=== PATIENT | female | born 1940 | race Caucasian/White ===

== ENCOUNTER 2017-06-14 19:00 | Inpatient (IN) ==
[2017-06-14] MEDS ORDERED: methylPREDNISolone SOD SUCC 125 MG/2 ML VIAL IV ONE (19:15)
[2017-06-14] MEDS ORDERED: IPRATROPIUM/ALBUTEROL 3 ML AMPUL.NEB NEB ONE ×3 (19:15→20:18)
[2017-06-14] MEDS ORDERED: methylPREDNISolone SOD SUCC 125 MG/2 ML VIAL ONE ×2 (19:16→23:39)
--- NOTE | 2017-06-14 19:23 | Emergency Department Note ---
SOB HPI - General Chief Complaint: Shortness of Breath/Dyspnea Stated Complaint: shortness of breath Time Seen by Provider: 06/14/17 19:12 Source: family Mode of arrival: wheelchair Limitations: no limitations - History of Present Illness 77-year-old female with a history of COPD and asthma. Been complaining of shortness of breath for the past 4 days with wheezing. She does use inhalers and nebulizers. She denies fever. She is having wheezing at this time. She is O2 dependent. Greater than 20-hypk-bdws history. Tobacco. Denies chest painpatient also states that she had 2 bowel movements which were black 1 yesterday and one this morning.. Is having no abdominal pain. She does admit to taking large amounts of aspirin because of left shoulder pain - Related Data Home Medications Medication Instructions Recorded Confirmed Citalopram Hydrobromide [Celexa] 40 mg PO DAILY 12/23/14 10/12/15 Montelukast Sodium [Singulair] 10 mg PO QDAY 12/23/14 10/12/15 Vitamin B Complex 1 cap PO DAILY 12/23/14 10/12/15 glipiZIDE [Glucotrol] 5 mg PO BIDAC 12/23/14 10/12/15 metFORMIN HCL [Glucophage] 1,000 mg PO BID 12/23/14 10/12/15 Vit C/Vit E/Lutein/Min/[place]-3 1 each PO DAILY 12/24/14 10/12/15 [Ocuvite Softgel] Amiodarone HCl [Cordarone] 200 mg PO TID 10/12/15 10/12/15 Apixaban [Eliquis] 5 mg PO BID 10/12/15 10/12/15 Bisoprolol [Zebeta] 5 mg PO BID 10/12/15 10/12/15 Digoxin [Lanoxin] 125 mcg PO DAILY 10/12/15 10/12/15 Saccharomyces Boulardii [Florastor] 250 mg PO DAILY 10/12/15 10/14/15 Atenolol [Tenormin] 50 mg PO DAILY 10/14/15 10/14/15 Previous Rx's Medication Instructions Recorded Fluticasone Propionate [Flonase] 1 spray NS BID #1 spray.laz 12/29/14 Ipratropium/Albuterol [Duoneb] 3 ml NEB Q4HRT #120 ampul.neb 12/29/14 Ipratropium [Atrovent] 2.5 ml NEB Q4HRT #120 ampul.neb 08/09/15 Magnesium Oxide [Magox 400] 400 mg PO DAILY #14 tablet 08/09/15 Cefuroxime [Ceftin] 500 mg PO Q12 #10 tablet 10/19/15 Allergies Allergy/AdvReac Type Severity Reaction Status Date / Time Sulfa (Sulfonamide Allergy Severe Hives Verified 02/16/16 16:02 Antibiotics) Review of Systems All systems ED: reviewed and negative except as stated. Constitutional: Denies: fever, chills Eyes: Denies: eye pain ENT ED: Denies: ear pain Cardiovascular: Denies: chest pain Respiratory: Reports: shortness of breath, cough, wheezes. Denies: phlegm, hemoptysis Gastrointestinal: Reports: melena. Denies: abdominal pain, nausea, vomiting Genitourinary: Denies: dysuria, urgency Musculoskeletal: Denies: back pain Integumentary: Denies: as per HPI, rash, lesions Neurological: Denies: headache Psychiatric: Denies: anxiety, depression Endocrine: Denies: fatigue Hematological/Lymphatic: Denies: easy bleeding Allergic/Immunologic: Denies: facial swelling Past Medical History - Past Medical History Medical history: Reports: arthritis, asthma, atrial fibrillation, CHF, COPD, DM , GERD, hypertension, other (pperipheral neuropathy) Psychiatric history: Reports: depression Surgical history ED: Reports: appendectomy, cholecystectomy, colectomy, hysterectomy, orthopedic, other (foot and ankle) - Social History smoking status: Former smoker Alcohol use: Reports: None Drug use: Reports: none Physical Exam Limitations: no limitations General appearance: alert Head: atraumatic, normocephalic Eye: Present: normal appearance, PERRL ENT: normal exam, normal oropharynx, mucous membranes moist Neck: Present: normal inspection, full ROM Chest: Present: normal inspection. Absent: symmetric chest wall rise, tenderness Respiratory: Present: normal lung sounds bilaterally, wheezes. Absent: respiratory distress, stridor Cardiovascular: Present: regular rate, normal rhythm. Absent: bradycardia, tachycardia Abdominal: Present: soft, normal bowel sounds. Absent: distention, tenderness, guarding, rebound, rigidity Rectal: Present: normal inspection, heme (+) stool. Absent: black stool Extremities: Present: normal inspection, full ROM. Absent: tenderness Back: Present: normal inspection, full ROM. Absent: tenderness Neurological: Present: alert, oriented X3, CN II-XII intact Psychiatric: Present: normal affect, normal mood Skin: Present: warm Course Vital Signs Temperature 98.4 F 06/14/17 19:00 Pulse Rate 76 06/14/17 19:00 Respiratory Rate 23 H 06/14/17 19:00 Blood Pressure 143/99 06/14/17 19:00 Pulse Oximetry (%) 96 06/14/17 19:00 Temperature 98.4 F 06/14/17 19:00 Pulse Rate 70 06/14/17 19:15 Respiratory Rate 21 06/14/17 19:16 Blood Pressure 102/52 06/14/17 19:16 Pulse Oximetry (%) 92 06/14/17 19:15 Shortness of Breath/Dyspnea - [facility] Narrative Medical decision making narrative: chest x-ray shows no acute infiltrates. Hemoglobin was 9.2. patient admits to large doses of aspirin that she's been using to treat her shoulder previously been using ibuprofen stools were guaiac positive. Dr. Bocanegra contacted and he will do an EGD or colonoscopy mild patient to be admitted to hospitalist, Dr. cottrell told contacted and patient admitted - Lab Data Result diagrams: 06/14/17 19:25 06/14/17 19:25 Lab Results 06/14/17 06/14/17 Range/Units 19:25 19:25 WBC 9.8 (4.5-11.0) K/mcL RBC 3.10 L (4.00-5.20) M/mcL Hgb 9.2 L (12.0-15.0) g/dL Hct 28.6 L (36.0-48.0) % POC Hct 29.0 L (36.0-48.0) % MCV 92.1 (80.0-100.0) fL MCH 29.8 (26.0-34.0) pg MCHC 32.4 (31.0-36.0) g/dL RDW 15.2 H (11.5-14.5) % Plt Count 312 (140-440) K/mcL MPV 9.0 (7.4-10.4) fL Gran % 69.8 (38.0-78.0) % Lymph % (Auto) 9.7 L (15.5-49.0) % [place] % (Auto) 11.5 (1.0-12.0) % Eos % (Auto) 8.5 H (0.0-7.0) % Baso % (Auto) 0.5 (0.0-2.0) % Gran # 6.9 (1.8-8.0) K/mcL Lymph # (Auto) 1.0 L (1.5-4.8) K/mcL [place] # (Auto) 1.1 H (0.1-0.9) K/mcL Eos # (Auto) 0.8 H (0.0-0.7) K/mcL Baso # (Auto) 0 (0.0-0.3) K/mcL POC Sodium 138 (133-145) mmol/L Sodium 141 (133-145) mmol/L POC Potassium 4.7 (3.3-5.1) mmol/L Potassium 5.0 (3.3-5.1) mmol/L POC Chloride 93 L (96-108) mmol/L Chloride 94 L (96-108) mmol/L Carbon Dioxide 33 H (22-30) mmol/L POC Total CO2 36 H (22-30) mmol/L Anion Gap 14.0 (8-16) POC BUN 31 H (8-23) mg/dl BUN 30 H (8-23) mg/dl Creatinine 1.7 H (0.6-1.1) mg/dl POC Creatinine 1.7 H (0.6-1.1) mg/dl GFR Calculation 28 Glucose 147 H (70-105) mg/dL POC Glucose 148 H (70-105) mg/dL Calcium 8.9 (8.6-10.4) mg/dl POC WB Ioniz Calcium 1.10 L (1.16-1.32) mmol/L Total Bilirubin < 0.2 (0.0-1.0) mg/dL AST 17 (0-37) U/l ALT 14 (0-40) U/l Alkaline Phosphatase 51 (39-117) U/L Total Protein 6.9 (5.9-8.4) gm/dL Albumin 4.2 (3.2-5.2) gm/dL Globulin 2.7 (2.2-3.7) gm/dL Albumin/Globulin Ratio 1.6 (1.0-2.3) Disposition Pt seen by 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
[2017-06-14 20:07] LABS: Basophils # (Auto) 0 K/mcL (0.0-0.3); Basophils % (Auto) 0.5 % (0.0-2.0); Eosinophils # (Auto) 0.8 K/mcL (0.0-0.7); Eosinophils % (Auto) 8.5 % (0.0-7.0); Granulocytes % (Auto) 69.8 % (38.0-78.0); Lymphocytes % (Auto) 9.7 % (15.5-49.0); Mean Cell Volume 92.1 fL (80.0-100.0); Mean Corpuscular HGB Conc 32.4 g/dL (31.0-36.0); Mean Corpuscular Hemoglobin 29.8 pg (26.0-34.0); Monocytes # (Auto) 1.1 K/mcL (0.1-0.9); Monocytes % (Auto) 11.5 % (1.0-12.0); Platelet Count 312 K/mcL (140-440); Red Cell Distribution Width 15.2 % (11.5-14.5)
[2017-06-14] MEDS ORDERED: PANTOPRAZOLE 40 MG VIAL IV ONE (20:28)
[2017-06-14 20:30] LABS: ALT/SGPT 14 U/l (0-40); Albumin 4.2 gm/dL (3.2-5.2); Albumin/Globulin Ratio 1.6 (1.0-2.3); Alkaline Phosphatase 51 U/L (39-117); Blood Urea Nitrogen 30 mg/dl (8-23)
[2017-06-14] MEDS ORDERED: PANTOPRAZOLE 80 MG in 0.9 % SODIUM CHLORIDE 100 ML IV SCH (20:45)
--- NOTE | 2017-06-14 20:58 | XRay Report ---
INDICATION: Dyspnea TECHNIQUE: AP chest x-ray,portable semiupright COMPARISON: Previous examinations dated 04/23/2017, 10/18/2015, 10/13/2015 FINDINGS:No change in position of left transvenous pacemaker leads. No focal pulmonary parenchymal consolidation. No discrete parenchymal mass. No interval change. Heart size and vascularity are normal. No pulmonary edema. No pulmonary congestion. IMPRESSION: No acute abnormality. No interval change. Interpreted and Authenticated by: Corey Raygoza 06/14/17
[2017-06-14] MEDS ORDERED: 0.9 % SODIUM CHLORIDE 1,000 ML IV SCH (21:15)
--- NOTE | 2017-06-14 22:30 | Internal Med History&Physical ---
Medical - H&P: HPI Patient information: Note initiated : 06/14/17 at 10:28 pm Service Date, if different from initiated Date: [] Patient: Johanne Carrasco a 77 y/o F admitted on for shortness of breath. Chief Complaint: [] History of present illness: Ms. Carrasco is a 77 year old Female with h/o asthma and COPD on 3 L home oxygen presents to the emergency room today because of shortness of breath that has been going on for the last 4 days The patient notes that the last 4 days she has been having cough and shortness of breath, cough is associated with yellowish greenish sputum, no blood in the sputum. Shortness of breath is associated with wheezing cough which has been progressively getting worse over the last 4 days. The patient therefore presented to the hospital for further evaluation. She admits to fatigue and weakness, denies any acute fever. Denies any sick contacts. Admits to decreased effort tolerance. The patient also notes that for the last 5-6 days she has been noticing that she has black colored stools. She denies any abdominal pain no nausea no vomiting no bright red blood in the stools. She notes that she had injured her shoulder a couple of months ago the left shoulder and has been taking aspirin 325 3 pills with Excedrin multiple times a day. She notes that that helps with the pain. She is aware that she should not be taking aspirin with the blood thinners but still chose to take this. The patient denies any new headaches no changes in vision difficulty in swallowing or changes in hearing, the patient has shortness of breath and cough no chest pain no abdominal pain no nausea no vomiting, admits to melena no bright red blood stools no hematuria. The patient denies any new joint swelling or new skin rashes but admits to easy bruising. She has wheezing going on. In the emergency room the patient was noted to be hypoxic eating 4 L to keep her oxygen saturation more than 90%. Her vital signs otherwise were stable. Her hemoglobin was 9.2 hematocrit 28. BUN was 30 creatinine is 1.7, she had bilateral wheeze on examination. Patient was admitted to the hospital for management of acute on chronic respiratory failure, COPD exacerbation and upper GI bleed there GI available site monitor at this point in time. However the ER physician spoke with a general surgeon who has agreed to perform an EGD scope tomorrow All systems: reviewed and no additional remarkable complaints except as stated Medical - H&P: PMH Medical history: Medical History Pneumonia (Acute) Diabetes mellitus (Chronic) Hypertension associated with diabetes (Chronic) Weakness generalized (Acute) Atrial flutter (Acute) Chronic bronchitis with COPD (chronic obstructive pulmonary disease) (Acute) Community acquired pneumonia (Acute) UTI (urinary tract infection), bacterial (Acute) Rectal bleeding (Acute) Family history: reviewed and not pertinent Social history: ex smoker Has heavy alcohol use denies use of recreational drug Medical - H&P: Meds Home Medications Medication Instructions Recorded Confirmed Type Montelukast Sodium [Singulair] 10 mg PO QDAY 12/23/14 06/14/17 History glipiZIDE [Glucotrol] 5 mg PO BIDAC 12/23/14 06/14/17 History metFORMIN HCL [Glucophage] 1,000 mg PO BID 12/23/14 06/14/17 History Magnesium Oxide [Magox 400] 400 mg PO DAILY #14 tablet 08/09/15 06/14/17 Rx Saccharomyces Boulardii [Florastor] 250 mg PO DAILY 10/12/15 06/14/17 History Amiodarone HCl [Pacerone] 100 mg PO ONCE 06/14/17 06/14/17 History Furosemide [Lasix] 40 mg PO DAILY 06/14/17 06/14/17 History Ipratropium/Albuterol [Duoneb] 3 ml NEB Q4HP PRN 06/14/17 06/14/17 History Lisinopril [Zestril] 20 mg PO ONCE 06/14/17 06/14/17 History Loratadine [Loradamed] 10 mg PO ONCE 06/14/17 06/14/17 History Oxybutynin Chloride [Ditropan] 5 mg PO BID 06/14/17 06/14/17 History diphenhydrAMINE [Benadryl] 25 mg PO Q4HP PRN 06/14/17 06/14/17 History Allergies Allergy/AdvReac Type Severity Reaction Status Date / Time Sulfa (Sulfonamide Allergy Severe Hives Verified 02/16/16 16:02 Antibiotics) Medical - H&P: Exam - Constitutional Vitals: Temp Pulse Resp BP Pulse Ox 98.4 F 75 20 133/60 97 06/14/17 19:00 06/14/17 22:05 06/14/17 22:05 06/14/17 22:05 06/14/17 22:05 Exam: GENERAL: The patient is a well-developed, well-nourished in no apparent distress. Is alert and oriented x3. PT obese VITAL SIGNS: Reviewed and as noted elsewhere. HEENT: Head is normocephalic and atraumatic. Extraocular muscles are intact. Pupils are equal, round, and reactive to light. Nares appeared normal. Mouth appears any without lesions. Mucous membranes are moist. NECK: Normal to inspection, Supple, No lymphadenopathy or thyromegaly. Neck LUNGS: Air entry equal on both sides, bilateral expiratory wheezes, no crackles , patient is able to speak full sentences no use of accessory muscles HEART: Regular rate and irregular rhythm, S1 and S2 heard, no Gallop, S3 or Rub Noted, No Gross murmur heard. ABDOMEN: Soft, nontender, and nondistended. Positive bowel sounds. No hepatosplenomegaly was noted. EXTREMITIES: No cyanosis, clubbing, rash, lesions or edema. NEUROLOGIC: Cranial nerves II through XII are grossly intact. Motor and Sensory System Grossly Intact PSYCHIATRIC: Normal affect, Normal Mood. Appropriate Behavior. SKIN: No ulceration or wounds noted, No jaundice, No rash noted. Multiple bruising noted on both hands Medical - H&P: Reslt - Labs CBC & Chem 7: 06/14/17 19:25 06/14/17 19:25 Labs: Short CBC 06/14/17 Range/Units 19:25 WBC 9.8 (4.5-11.0) K/mcL Hgb 9.2 L (12.0-15.0) g/dL Hct 28.6 L (36.0-48.0) % Plt Count 312 (140-440) K/mcL BMP 06/14/17 19:25 Sodium 141 Potassium 5.0 Chloride 94 L Carbon Dioxide 33 H BUN 30 H Creatinine 1.7 H Glucose 147 H Calcium 8.9 Liver Function 06/14/17 Range/Units 19:25 Total Bilirubin < 0.2 (0.0-1.0) mg/dL AST 17 (0-37) U/l ALT 14 (0-40) U/l Alkaline Phosphatase 51 (39-117) U/L Albumin 4.2 (3.2-5.2) gm/dL Medical - H&P: A/P - Narrative A/P Narrative: A/P Acute on Chronic Respiratory Failure Acute copd exacerbation Acute Upper GI bleed Chronic Kidney Disease h/o Atrial fibrillation h/o Congestive Heart failure Essential hypertension Diabetes mellitus Obesity Acute blood loss anemia Plan Admit to tele status IV PPI BID NPO MN IV steroids, IV levofloxacin, Duonebs for copd Resume home meds hold anticoagulation in light of Upper gi bleed pt educated regarding not to take asa/ nsaids with xareltro Surgery evaluation in AM Anemia workup in AM DVT scd DNR code status NPO MN except meds End of care reviewed with the patient her son and the daughter
[2017-06-14] MEDS ORDERED: ONDANSETRON 4 MG/2 ML VIAL IV PRN (22:41)
[2017-06-14] MEDS ORDERED: LEVOFLOXACIN 500 MG/100 ML BAG IV SCH (22:41)
[2017-06-14] MEDS ORDERED: NALOXONE HCL 0.4 MG/ML VIAL IV PRN (22:41)
[2017-06-14] MEDS ORDERED: ACETAMINOPHEN 325 MG TABLET PO PRN (22:41)
[2017-06-14] MEDS ORDERED: DEXTROSE 50% 50 ML VIAL IV PRN (22:41)
[2017-06-14] MEDS: IPRATROPIUM/ALBUTEROL 3 ML AMPUL.NEB NEB SCH (23:39)
[2017-06-14] MEDS ORDERED: LEVOFLOXACIN 500 MG/100 ML BAG IV ONE (23:39)
[2017-06-15] MEDS: methylPREDNISolone SOD SUCC 125 MG/2 ML VIAL IV SCH ×4 (00:11→22:14)
[2017-06-15] MEDS: 0.9 % SODIUM CHLORIDE 10 ML SYRINGE IV SCH ×4 (00:12→22:14)
[2017-06-15] MEDS: INSULIN LISPRO 1 UNIT/0.01 ML UNIT SQ SCH ×4 (00:15→17:01)
[2017-06-15] MEDS ORDERED: INSULIN LISPRO 1 UNIT/0.01 ML UNIT SQ ONE ×2 (00:20→05:41)
[2017-06-15] MEDS: IPRATROPIUM/ALBUTEROL 3 ML AMPUL.NEB NEB SCH ×6 (02:53→23:07)
[2017-06-15 05:23] LABS: Basophils # (Auto) 0 K/mcL (0.0-0.3); Basophils % (Auto) 0.2 % (0.0-2.0); Eosinophils # (Auto) 0.1 K/mcL (0.0-0.7); Eosinophils % (Auto) 1.6 % (0.0-7.0); Granulocytes % (Auto) 94.5 % (38.0-78.0); Lymphocytes # (Auto) 0.3 K/mcL (1.5-4.8); Lymphocytes % (Auto) 2.9 % (15.5-49.0); Mean Cell Volume 92.7 fL (80.0-100.0); Mean Corpuscular HGB Conc 31.8 g/dL (31.0-36.0); Mean Corpuscular Hemoglobin 29.5 pg (26.0-34.0); Monocytes # (Auto) 0.1 K/mcL (0.1-0.9); Monocytes % (Auto) 0.8 % (1.0-12.0); Platelet Count 309 K/mcL (140-440); RBC 3.12 M/mcL (4.00-5.20); Red Cell Distribution Width 15.4 % (11.5-14.5)
[2017-06-15] MEDS ORDERED: methylPREDNISolone SOD SUCC 125 MG/2 ML VIAL ONE (05:43)
[2017-06-15 05:53] LABS: ALT/SGPT 14 U/l (0-40); Albumin 4.4 gm/dL (3.2-5.2); Albumin/Globulin Ratio 1.7 (1.0-2.3); Alkaline Phosphatase 50 U/L (39-117); Bilirubin,Direct < 0.2 mg/dL (0.0-0.3); Blood Urea Nitrogen 25 mg/dl (8-23); Gamma Glutamyl Transpeptidase 11 U/L (5-36); Iron 64 mcg/dl (37-145); Transferrin % Saturation 14 % (15-50); Unsaturated Iron Binding 382 mcg/dL (112-346); Uric Acid 7.1 mg/dL (2.5-8.0)
[2017-06-15 06:02] LABS: Ferritin 14.5 ng/ml (30-400)
[2017-06-15] MEDS ORDERED: diphenhydrAMINE 25 MG CAPSULE PO PRN (07:26)
[2017-06-15] MEDS ORDERED: LISINOPRIL 20 MG TABLET PO SCH (07:30)
[2017-06-15] MEDS: LACTOBACILLUS 1 CAPSULE PO SCH (08:51)
[2017-06-15] MEDS: LISINOPRIL 20 MG TABLET PO SCH (08:51)
[2017-06-15] MEDS: MAGNESIUM OXIDE 400 MG TABLET PO SCH (08:52)
[2017-06-15] MEDS: DOXYCYCLINE HYCLATE 100 MG TABLET.ORL PO SCH ×2 (08:52→22:14)
[2017-06-15] MEDS: VITAMIN B COMPLEX 1 CAPSULE PO SCH (08:52)
[2017-06-15] MEDS: MONTELUKAST 10 MG TABLET PO SCH (08:52)
[2017-06-15] MEDS: OXYBUTYNIN CHLORIDE 5 MG TABLET PO SCH ×2 (08:52→22:14)
[2017-06-15] MEDS: AMIODARONE HCL 200 MG TABLET PO SCH (08:52)
[2017-06-15] MEDS: ATENOLOL 50 MG TABLET PO SCH (08:52)
[2017-06-15] MEDS: FUROSEMIDE 40 MG TABLET PO SCH (08:52)
[2017-06-15] MEDS ORDERED: AMIODARONE HCL 200 MG TABLET PO SCH (09:00)
[2017-06-15] MEDS ORDERED: DIGOXIN 125 MCG TABLET PO SCH (09:00)
[2017-06-15] MEDS ORDERED: CITALOPRAM HYDROBROMIDE 40 MG PO SCH (09:00)
--- NOTE | 2017-06-15 14:55 | Internal Med Progress Note ---
Medical - PN: Subj Patient information: Note initiated : 06/15/17 at 2:53 pm Service Date, if different from initiated Date: [] Patient: Johanne Carrasco a 77 y/o F admitted on 06/14/17 for shortness of breath. Chief Complaint: [] Interval history: Ms. Carrasco is a 77 year old Female with h/o asthma and COPD on 3 L home oxygen presents to the emergency room today because of shortness of breath that has been going on for the last 4 days The patient notes that the last 4 days she has been having cough and shortness of breath, cough is associated with yellowish greenish sputum, no blood in the sputum. Shortness of breath is associated with wheezing cough which has been progressively getting worse over the last 4 days. The patient therefore presented to the hospital for further evaluation. She admits to fatigue and weakness, denies any acute fever. Denies any sick contacts. Admits to decreased effort tolerance. The patient also notes that for the last 5-6 days she has been noticing that she has black colored stools. She denies any abdominal pain no nausea no vomiting no bright red blood in the stools. She notes that she had injured her shoulder a couple of months ago the left shoulder and has been taking aspirin 325 3 pills with Excedrin multiple times a day. She notes that that helps with the pain. She is aware that she should not be taking aspirin with the blood thinners but still chose to take this. The patient denies any new headaches no changes in vision difficulty in swallowing or changes in hearing, the patient has shortness of breath and cough no chest pain no abdominal pain no nausea no vomiting, admits to melena no bright red blood stools no hematuria. The patient denies any new joint swelling or new skin rashes but admits to easy bruising. She has wheezing going on. In the emergency room the patient was noted to be hypoxic eating 4 L to keep her oxygen saturation more than 90%. Her vital signs otherwise were stable. Her hemoglobin was 9.2 hematocrit 28. BUN was 30 creatinine is 1.7, she had bilateral wheeze on examination. Patient was admitted to the hospital for management of acute on chronic respiratory failure, COPD exacerbation and upper GI bleed there GI available exhibition designer at this point in time. However the ER physician spoke with a general surgeon who has agreed to perform an EGD scope tomorrow June 15 She is seen and examined, no acute overnight events, patient feels somewhat better than yesterday but not a significant change. She still has cough and shortness of breath. Her hemoglobin is stable. Vital signs remained stable. Her exam revealed significant bilateral expiratory wheezes and poor air entry. I would advise to postpone the EGD scope into tomorrow to see if the patient can be a bit more stable to undergo the procedure as the patient is hemodynamically stable at this point in time, we will start the patient on liquid diet for today and keep the patient n.p.o. for tomorrow. The patient will continue on IV PPI for now. The labs show stable hemoglobin, at 9.2. Creatinine is improved from 1.7-1.4. Anemia workup shows iron deficiency anemia Pertinent ROS: Denies headache, dizziness Denies chest pain, palpitations Shortness of breath and cough is present Denies abdominal pain, nausea or vomiting. - Constitutional Vitals: Vital Signs Temp Pulse Resp BP Pulse Ox 97.8 F 82 18 166/62 90 06/15/17 12:00 06/15/17 11:12 06/15/17 12:00 06/15/17 12:00 06/15/17 12:00 Period Temp Pulse Resp BP Sys/De Jesus Pulse Ox Last 24 Hr 97.8 F-99.3 F 68-83 16-24 82-166/49-99 70-98 Intake and Output 06/15/17 06/15/17 06/15/17 05:59 13:59 21:59 Intake Total 543 / 543 Output Total 1949 1200 / 1200 675 / 675 Balance -1407 / -1407 -1200 / -1200 -675 / -675 Weight 222 lb 222 lb Patient Weight 06/16/17 05:59 Weight 222 lb Intake & Output: Intake & Output 06/15/17 06/15/17 06/15/17 05:59 13:59 21:59 Intake Total 543 / 543 Output Total 1949 1200 / 1200 675 / 675 Balance -1407 / -1407 -1200 / -1200 -675 / -675 Weight 222 lb 222 lb Intake: IV 43 / 43 Oral 500 / 500 Output: Urine Catheter Amount 1949 1200 / 1200 Uretheral ([place]) 1000 / 1000 Void Amount 675 / 675 Exam: Constitutional; Afebrile, cooperative, alert, not in distress. Eyes- No icterus, , No periorbital swelling Ears- Ext ear normal, hearing normal to conversation. Neck- Midline trachea, supple Respiratory system: Air entry decreased bilaterally somewhat better than yesterday, bilateral expiratory wheezes present patient able to speak full sentences no accessory muscle use CVS- Rate rhythm regular, S1,S2 heard, no gallop, no rub. Abdomen- Soft nontender abdomen, no organomegaly, no tenderness, no guarding or rigidity, BDC MANAGER- AOOx3, moving all extremities, no gross focal deficit noted. Medical - PN: Obj Da - Labs CBC & Chem 7: 06/15/17 03:31 06/15/17 03:31 Labs: Abnormal Lab Results 06/15/17 06/15/17 06/15/17 03:31 03:31 03:31 RBC 3.12 L Hgb 9.2 L Hct 28.9 L POC Hct RDW 15.4 H Gran % 94.5 H Lymph % (Auto) 2.9 L [place] % (Auto) 0.8 L Eos % (Auto) Gran # 8.5 H Lymph # (Auto) 0.3 L [place] # (Auto) Eos # (Auto) POC Chloride Chloride Carbon Dioxide 31 H POC Total CO2 POC BUN BUN 25 H Creatinine 1.4 H POC Creatinine Glucose 258 H POC Glucose POC WB Ioniz Calcium TIBC 446 H Unsat Iron Binding 382 H Transferrin % Sat 14 L Ferritin 14.5 L NT-Pro-B Natriuret Pep 1416.0 H 06/14/17 06/14/17 19:25 19:25 RBC 3.10 L Hgb 9.2 L Hct 28.6 L POC Hct 29.0 L RDW 15.2 H Gran % Lymph % (Auto) 9.7 L [place] % (Auto) Eos % (Auto) 8.5 H Gran # Lymph # (Auto) 1.0 L [place] # (Auto) 1.1 H Eos # (Auto) 0.8 H POC Chloride 93 L Chloride 94 L Carbon Dioxide 33 H POC Total CO2 36 H POC BUN 31 H BUN 30 H Creatinine 1.7 H POC Creatinine 1.7 H Glucose 147 H POC Glucose 148 H POC WB Ioniz Calcium 1.10 L TIBC Unsat Iron Binding Transferrin % Sat Ferritin NT-Pro-B Natriuret Pep Meds: Medications Acetaminophen (Tylenol) 650 mg PO Q6HP PRN PRN Reason: PAIN/FEVER > 101 Albuterol/Ipratropium (Duoneb) 3 ml NEB Q4HRT [facility] Last Admin: 06/15/17 11:10 Dose: 3 ml [facility]iodarone [facility] (C[facility]) [facility] Last Admin: 06/15/17 08:52 Dose: 100 mg Atenolol (Tenormin) 50 mg PO DAILY [facility] Last Admin: 06/15/17 08:52 Dose: 50 mg Dextrose (Dextrose 50%) 0 ml IV UD PRN PRN Reason: Hypoglycemia Diagnostic Test (Pha) (Accu-Chek) 1 each FS Q6 [facility] Last Admin: 06/15/17 12:09 Dose: 1 each Diphenhydramine HCl (Benadryl) 25 mg PO Q4HP PRN PRN Reason: Allergy Symptoms Doxycycline Hyclate (Doxycycline Hyclate) 100 mg PO BID [facility] Last Admin: 06/15/17 08:52 Dose: 100 mg Furosemide (Lasix) 40 mg PO DAILY [facility] Last Admin: 06/15/17 08:52 Dose: 40 mg Insulin Human Lispro (Humalog) 0 unit SQ Q6 [facility] PRN Reason: Protocol Last Admin: 06/15/17 12:20 Dose: 3 unit Lactobacillus Rhamnosus (Culturelle) 1 cap PO DAILY [facility] Last Admin: 06/15/17 08:51 Dose: 1 cap Lisinopril (Zestril) 20 mg PO DAILY [facility] Last Admin: 06/15/17 08:51 Dose: 20 mg Magnesium Oxide (Magnesium Oxide) 400 mg PO DAILY [facility] Last Admin: 06/15/17 08:52 Dose: 400 mg Methylprednisolone Sodium Succinate (Solu-Medrol) 62.5 mg IV Q8 [facility] Last Admin: 06/15/17 14:26 Dose: 62.5 mg Montelukast Sodium (Singular) 10 mg PO QDAY [facility] Last Admin: 06/15/17 08:52 Dose: 10 mg Naloxone HCl (Narcan) 0.1 mg IV Q2MIN PRN PRN Reason: Opiate Reversal Ondansetron HCl (Zofran) 4 mg IV Q4HP PRN PRN Reason: Nausea And Vomiting Oxybutynin Chloride (Ditropan) 5 mg PO BID [facility] Last Admin: 06/15/17 08:52 Dose: 5 mg Oxycodone/Acetaminophen (Percocet 5-325 Mg) 1 tab PO Q4HP PRN PRN Reason: Pain Pantoprazole Sodium (Protonix) 40 mg IV BIDAC [facility] Sodium Chloride (Saline Flush) 10 ml IV Q8 [facility] Last Admin: 06/15/17 14:26 Dose: 10 ml Vitamin B Complex (Vitamin B Complex) 1 cap PO DAILY [facility] Last Admin: 06/15/17 08:52 Dose: 1 cap Medical - PN: A/P - Time Spent With Patient Total time spent is greater than 50% in coordination of care (as documented) at patient's floor/unit and/or counseling patient: - Narrative A/P Narrative: A/P Acute on Chronic Respiratory Failure Acute copd exacerbation Acute Upper GI bleed Chronic Kidney Disease h/o Atrial fibrillation h/o Congestive Heart failure Essential hypertension Diabetes mellitus Obesity Acute blood loss anemia Iron deficiency anemia Plan Continue to monitor on telemetry Respiratory status is stable Creatinine is improving Continue IV PPI BID, patient is on pantoprazole NPO MN, okay for liquid diet today IV steroids, IV levofloxacin, Duonebs for copd, micro-biology negative so far Resume home meds hold anticoagulation in light of Upper gi bleed pt educated regarding not to take asa/ nsaids with xareltro Surgery evaluation today EGD scope likely tomorrow Anemia workup shows iron deficiency anemia DVT scd DNR code status NPO MN except meds, full liquid diet for now Medical - PN: Qual - VTE Deep Vein Thrombosis/Pulmonary Embolism Present on Admission: No
[2017-06-15] MEDS ORDERED: LEVOFLOXACIN 250 MG/50 ML BAG IV SCH (15:00)
--- NOTE | 2017-06-15 15:02 | General Surgery Consult Note ---
History of Present Illness Patient information: Note initiated : 06/15/17 at 2:59 pm Service Date, if different from initiated Date: [] Patient: Johanne Carrasco 77 y/o F admitted on 06/14/17 for shortness of breath. Chief Complaint: [] Reason for consult: abdominal pain Requesting physician: Camille Salas History of present illness: 77-year-old female who is admitted with acute respiratory distress and 3 day history of black tarry stools. She has some indigestion and had been taking 3 aspirin or 3 Excedrin's every 4 hours for arthritic pain. She was taken this daily for week or more prior to onset of black stools. Her last documented hemoglobin in the record was 12.1 and she presented with a hemoglobin of 9.2. She has also been on Xarelto for chronic atrial fibrillation. She has not had a bowel movement since admission. Patient has a history of O2 dependent chronic obstructive lung disease which is moderately severe and she has had recent acute exacerbation. This is her limiting problem at this time. She is already under treatment and states that she is feeling better. Review of Systems - Constitutional daytime sleepiness, fatigue, malaise, snoring, stops breathing during sleep - EENT Nose, mouth and throat: dizziness, no lip swelling, no nasal congestion, no nasal discharge, no sinus pressure, no sore throat - Cardiovascular dyspnea on exertion, irregular heart rhythm, palpatations, rapid heart rate, no chest pain at rest - Respiratory wheezing, snoring, chest congestion, excessive phlegm production - Gastrointestinal abdominal pain, change in bowel habits, heartburn, hematochezia, melena, nausea - Genitourinary Genitourinary: nocturia, urinary frequency, urinary incontinence - Musculoskeletal abnormal gait, arthralgias, back pain, joint swelling, myalgias, radiating pain into limb - Integumentary unusual bruising, no pruritus, no rash - Neurological abnormal hearing, dizziness, numbness, vertigo, weakness, no tremor(s) - Psychiatric abnormal sleep pattern, anxiety, depression, hallucinations - Endocrine no fatigue, no palpitations - Hematologic/Lymphatic easy bruising, no easy bleeding, no lymphadenopathy - Allergic/Immunologic no tongue swelling, no throat swelling, no uticaria, no wheezing, no lip swelling Past History Past medical history: Recurrent severe atrial fibrillation with rapid ventricular response Chronic obstructive lung disease oxygen dependent moderately severe Diabetes mellitus History of supraventricular tachycardia Depression Peripheral neuropathy Past surgical history: Permanent pacemaker Open treatment and fixation left clavicle Cholecystectomy Partial colectomy and small bowel resection Abdominal hysterectomy Foot surgery Past family history: Mother age 91 natural causes Father age 62 lung cancer 3 siblings with diabetes and hypertension Past social history: Former smoker for greater than 50 years Former alcohol use but none in over 10 years Denies any drug use Medications and Allergies Home Medications Medication Instructions Recorded Confirmed Type Montelukast Sodium [Singulair] 10 mg PO QDAY 12/23/14 06/14/17 History glipiZIDE [Glucotrol] 5 mg PO BIDAC 12/23/14 06/14/17 History metFORMIN HCL [Glucophage] 1,000 mg PO BID 12/23/14 06/14/17 History Magnesium Oxide [Magox 400] 400 mg PO DAILY #14 tablet 08/09/15 06/14/17 Rx Saccharomyces Boulardii [Florastor] 250 mg PO DAILY 10/12/15 06/14/17 History Amiodarone HCl [Pacerone] 100 mg PO ONCE 06/14/17 06/14/17 History Furosemide [Lasix] 40 mg PO DAILY 06/14/17 06/14/17 History Ipratropium/Albuterol [Duoneb] 3 ml NEB Q4HP PRN 06/14/17 06/14/17 History Lisinopril [Zestril] 20 mg PO ONCE 06/14/17 06/14/17 History Loratadine [Loradamed] 10 mg PO ONCE 06/14/17 06/14/17 History Oxybutynin Chloride [Ditropan] 5 mg PO BID 06/14/17 06/14/17 History diphenhydrAMINE [Benadryl] 25 mg PO Q4HP PRN 06/14/17 06/14/17 History Allergies Allergy/AdvReac Type Severity Reaction Status Date / Time Sulfa (Sulfonamide Allergy Severe Hives Verified 02/16/16 16:02 Antibiotics) Exam Temp Pulse Resp BP Pulse Ox 97.8 F 82 18 166/62 90 06/15/17 12:00 06/15/17 11:12 06/15/17 12:00 06/15/17 12:00 06/15/17 12:00 - General physical appearance well developed, well nourished, no distress, chronically ill, obese - Eyes PERRL, normal ocular movement - ENT normal pinna, normal nares, normal mucosa, no hearing loss, no congestion, decreased hearing - Head Head exam IM: Present: atraumatic, normal inspection, normocephalic - Neck no masses, no bruits, trachea midline, no lymphadectomy, no venous distension - Cardiovascular Cardiovascular exam IM: Present: normal rate and rhythm, irregular rhythm, tachycardia. Absent: JVD - Respiratory normal expansion, normal respiratory effort wheezing: bilateral, rales: bilateral - Abdomen Abdomen: Present: soft, tender (Mild tenderness in left lower quadrant), bowel sounds, surgical scars (Extensive old surgical scars of right upper quadrant and midline), distended (Mild distention) Hernia: Present: none, incisional (Multiple incisional hernias of midline into the left of midline) - Genitourinary Present: normal external genitalia - Integumentary Present: no rash, no growths, other (Multiple bruises due to Xarelto therapy) - Neurologic Present: normal coordination, normal sensation - Musculoskeletal Present: normal gait, normal posture - Psychiatric Present: oriented to time, oriented to person, oriented to place, speech is normal, memory intact Results - Labs 06/15/17 03:31 18 03:31 Abnormal lab results 06/14/17 06/14/1718 Range/Units 19:25 19:25 03:31 RBC 3.10 L 3.12 L (4.00-5.20) M/mcL Hgb 9.2 L 9.2 L (12.0-15.0) g/dL Hct 28.6 L 28.9 L (36.0-48.0) % POC Hct 29.0 L (36.0-48.0) % RDW 15.2 H 15.4 H (11.5-14.5) % Gran % 94.5 H (38.0-78.0) % Lymph % (Auto) 9.7 L 2.9 L (15.5-49.0) % [place] % (Auto) 0.8 L (1.0-12.0) % Eos % (Auto) 8.5 H (0.0-7.0) % Gran # 8.5 H (1.8-8.0) K/mcL Lymph # (Auto) 1.0 L 0.3 L (1.5-4.8) K/mcL [place] # (Auto) 1.1 H (0.1-0.9) K/mcL Eos # (Auto) 0.8 H (0.0-0.7) K/mcL POC Chloride 93 L (96-108) mmol/L Chloride 94 L (96-108) mmol/L Carbon Dioxide 33 H (22-30) mmol/L POC Total CO2 36 H (22-30) mmol/L POC BUN 31 H (8-23) mg/dl BUN 30 H (8-23) mg/dl Creatinine 1.7 H (0.6-1.1) mg/dl POC Creatinine 1.7 H (0.6-1.1) mg/dl Glucose 147 H (70-105) mg/dL POC Glucose 148 H (70-105) mg/dL POC WB Ioniz Calcium 1.10 L (1.16-1.32) mmol/L TIBC (228-428) ug/dl Unsat Iron Binding (112-346) mcg/dL Transferrin % Sat (15-50) % Ferritin (30-400) ng/ml NT-Pro-B Natriuret Pep (0-450) pg/ml 18 06/15/17 Range/Units 03:31 03:31 RBC (4.00-5.20) M/mcL Hgb (12.0-15.0) g/dL Hct (36.0-48.0) % POC Hct (36.0-48.0) % RDW (11.5-14.5) % Gran % (38.0-78.0) % Lymph % (Auto) (15.5-49.0) % [place] % (Auto) (1.0-12.0) % Eos % (Auto) (0.0-7.0) % Gran # (1.8-8.0) K/mcL Lymph # (Auto) (1.5-4.8) K/mcL [place] # (Auto) (0.1-0.9) K/mcL Eos # (Auto) (0.0-0.7) K/mcL POC Chloride (96-108) mmol/L Chloride (96-108) mmol/L Carbon Dioxide 31 H (22-30) mmol/L POC Total CO2 (22-30) mmol/L POC BUN (8-23) mg/dl BUN 25 H (8-23) mg/dl Creatinine 1.4 H (0.6-1.1) mg/dl POC Creatinine (0.6-1.1) mg/dl Glucose 258 H (70-105) mg/dL POC Glucose (70-105) mg/dL POC WB Ioniz Calcium (1.16-1.32) mmol/L TIBC 446 H (228-428) ug/dl Unsat Iron Binding 382 H (112-346) mcg/dL Transferrin % Sat 14 L (15-50) % Ferritin 14.5 L (30-400) ng/ml NT-Pro-B Natriuret Pep 1416.0 H (0-450) pg/ml Diabetes panel 06/14/17 06/15/17 Range/Units 19:25 03:31 Sodium 141 141 (133-145) mmol/L Potassium 5.0 4.9 (3.3-5.1) mmol/L Chloride 94 L 98 (96-108) mmol/L Carbon Dioxide 33 H 31 H (22-30) mmol/L BUN 30 H 25 H (8-23) mg/dl Creatinine 1.7 H 1.4 H (0.6-1.1) mg/dl Glucose 147 H 258 H (70-105) mg/dL Calcium 8.9 9.1 (8.6-10.4) mg/dl AST 17 16 (0-37) U/l ALT 14 14 (0-40) U/l Alkaline Phosphatase 51 50 (39-117) U/L Total Protein 6.9 7.0 (5.9-8.4) gm/dL Albumin 4.2 4.4 (3.2-5.2) gm/dL Triglycerides 76 (<150) mg/dl Calcium panel 06/14/17 06/15/17 Range/Units 19:25 03:31 Calcium 8.9 9.1 (8.6-10.4) mg/dl Phosphorus 3.3 (2.7-4.5) mg/dL Albumin 4.2 4.4 (3.2-5.2) gm/dL Pituitary panel 06/14/17 06/15/17 Range/Units 19:25 03:31 Sodium 141 141 (133-145) mmol/L Potassium 5.0 4.9 (3.3-5.1) mmol/L Chloride 94 L 98 (96-108) mmol/L Carbon Dioxide 33 H 31 H (22-30) mmol/L BUN 30 H 25 H (8-23) mg/dl Creatinine 1.7 H 1.4 H (0.6-1.1) mg/dl Glucose 147 H 258 H (70-105) mg/dL Calcium 8.9 9.1 (8.6-10.4) mg/dl Adrenal panel 06/14/1718 Range/Units 19:25 03:31 Sodium 141 141 (133-145) mmol/L Potassium 5.0 4.9 (3.3-5.1) mmol/L Chloride 94 L 98 (96-108) mmol/L Carbon Dioxide 33 H 31 H (22-30) mmol/L BUN 30 H 25 H (8-23) mg/dl Creatinine 1.7 H 1.4 H (0.6-1.1) mg/dl Glucose 147 H 258 H (70-105) mg/dL Calcium 8.9 9.1 (8.6-10.4) mg/dl Total Bilirubin < 0.2 0.2 (0.0-1.0) mg/dL AST 17 16 (0-37) U/l ALT 14 14 (0-40) U/l Alkaline Phosphatase 51 50 (39-117) U/L Total Protein 6.9 7.0 (5.9-8.4) gm/dL Albumin 4.2 4.4 (3.2-5.2) gm/dL All other labs normal. Assessment and Plan (1) Acute exacerbation of chronic obstructive airways disease Status: Acute (2) GI bleed Continue with IV pantoprazole Add Carafate 1 g 4 times daily We will schedule EGD after her breathing is maximized and prior to discharge Hold all anticoagulant therapy until after EGD Status: Acute (3) Diabetes mellitus Status: Chronic Qualifiers: Diabetes mellitus type: type 2 Diabetes mellitus complication status: with neurologic complications (4) Hypertension associated with diabetes Status: Chronic
[2017-06-15 17:37] LABS: Vitamin B12 160.7 pg/ml (232-1245)
[2017-06-15] MEDS: SUCRALFATE 1 GM/10 ML ORAL.SUSP PO SCH (17:54)
[2017-06-15] MEDS: oxyCODONE/APAP 5/325MG TABLET PO PRN (22:13)
[2017-06-15] MEDS: PANTOPRAZOLE 40 MG VIAL IV SCH (22:13)
[2017-06-16] MEDS: SUCRALFATE 1 GM/10 ML ORAL.SUSP PO SCH ×5 (00:13→16:56)
[2017-06-16] MEDS: INSULIN LISPRO 1 UNIT/0.01 ML UNIT SQ SCH ×4 (00:13→16:56)
[2017-06-16] MEDS: IPRATROPIUM/ALBUTEROL 3 ML AMPUL.NEB NEB SCH ×6 (03:25→22:17)
[2017-06-16 05:02] LABS: Basophils # (Auto) 0 K/mcL (0.0-0.3); Basophils % (Auto) 0 % (0.0-2.0); Eosinophils # (Auto) 0.3 K/mcL (0.0-0.7); Eosinophils % (Auto) 2.7 % (0.0-7.0); Granulocytes % (Auto) 88.9 % (38.0-78.0); Lymphocytes # (Auto) 0.4 K/mcL (1.5-4.8); Lymphocytes % (Auto) 3.4 % (15.5-49.0); Mean Cell Volume 92.3 fL (80.0-100.0); Mean Corpuscular Hemoglobin 29.6 pg (26.0-34.0); Monocytes # (Auto) 0.6 K/mcL (0.1-0.9); Platelet Count 304 K/mcL (140-440); RBC 2.85 M/mcL (4.00-5.20); Red Cell Distribution Width 15.4 % (11.5-14.5)
[2017-06-16 05:11] LABS: ALT/SGPT 12 U/l (0-40); Albumin 4.1 gm/dL (3.2-5.2); Albumin/Globulin Ratio 1.7 (1.0-2.3); Alkaline Phosphatase 46 U/L (39-117); Bilirubin,Direct < 0.2 mg/dL (0.0-0.3); Blood Urea Nitrogen 28 mg/dl (8-23); Gamma Glutamyl Transpeptidase 13 U/L (5-36); Uric Acid 7.8 mg/dL (2.5-8.0)
[2017-06-16] MEDS: methylPREDNISolone SOD SUCC 125 MG/2 ML VIAL IV SCH ×3 (06:02→21:07)
[2017-06-16] MEDS: 0.9 % SODIUM CHLORIDE 10 ML SYRINGE IV SCH ×3 (06:02→21:07)
[2017-06-16] MEDS ORDERED: CYANOCOBALAMIN 1,000 MCG/ML VIAL IM SCH (09:00)
[2017-06-16] MEDS: PANTOPRAZOLE 40 MG VIAL IV SCH ×2 (09:03→16:56)
[2017-06-16] MEDS: MAGNESIUM OXIDE 400 MG TABLET PO SCH (09:04)
[2017-06-16] MEDS: MONTELUKAST 10 MG TABLET PO SCH (09:04)
[2017-06-16] MEDS: ATENOLOL 50 MG TABLET PO SCH (09:04)
[2017-06-16] MEDS: LISINOPRIL 20 MG TABLET PO SCH (09:04)
[2017-06-16] MEDS: FUROSEMIDE 40 MG TABLET PO SCH (09:04)
[2017-06-16] MEDS: AMIODARONE HCL 200 MG TABLET PO SCH (09:04)
[2017-06-16] MEDS: VITAMIN B COMPLEX 1 CAPSULE PO SCH (09:04)
[2017-06-16] MEDS: OXYBUTYNIN CHLORIDE 5 MG TABLET PO SCH ×2 (09:04→21:07)
[2017-06-16] MEDS: LACTOBACILLUS 1 CAPSULE PO SCH (09:04)
[2017-06-16] MEDS: DOXYCYCLINE HYCLATE 100 MG TABLET.ORL PO SCH ×2 (09:06→21:07)
--- NOTE | 2017-06-16 10:44 | Internal Med Progress Note ---
Medical - PN: Subj Patient information: Note initiated : 06/16/17 at 10:41 am Service Date, if different from initiated Date: [] Patient: Johanne Carrasco a 77 y/o F admitted on 06/14/17 for shortness of breath. Chief Complaint: [] Interval history: Ms. Carrasco is a 77 year old Female with h/o asthma and COPD on 3 L home oxygen presents to the emergency room today because of shortness of breath that has been going on for the last 4 days The patient notes that the last 4 days she has been having cough and shortness of breath, cough is associated with yellowish greenish sputum, no blood in the sputum. Shortness of breath is associated with wheezing cough which has been progressively getting worse over the last 4 days. The patient therefore presented to the hospital for further evaluation. She admits to fatigue and weakness, denies any acute fever. Denies any sick contacts. Admits to decreased effort tolerance. The patient also notes that for the last 5-6 days she has been noticing that she has black colored stools. She denies any abdominal pain no nausea no vomiting no bright red blood in the stools. She notes that she had injured her shoulder a couple of months ago the left shoulder and has been taking aspirin 325 3 pills with Excedrin multiple times a day. She notes that that helps with the pain. She is aware that she should not be taking aspirin with the blood thinners but still chose to take this. The patient denies any new headaches no changes in vision difficulty in swallowing or changes in hearing, the patient has shortness of breath and cough no chest pain no abdominal pain no nausea no vomiting, admits to melena no bright red blood stools no hematuria. The patient denies any new joint swelling or new skin rashes but admits to easy bruising. She has wheezing going on. In the emergency room the patient was noted to be hypoxic eating 4 L to keep her oxygen saturation more than 90%. Her vital signs otherwise were stable. Her hemoglobin was 9.2 hematocrit 28. BUN was 30 creatinine is 1.7, she had bilateral wheeze on examination. 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 However the ER physician spoke with a general surgeon who has agreed to perform an EGD scope tomorrow June 15 She is seen and examined, no acute overnight events, patient feels somewhat better than yesterday but not a significant change. She still has cough and shortness of breath. Her hemoglobin is stable. Vital signs remained stable. Her exam revealed significant bilateral expiratory wheezes and poor air entry. I would advise to postpone the EGD scope into tomorrow to see if the patient can be a bit more stable to undergo the procedure as the patient is hemodynamically stable at this point in time, we will start the patient on liquid diet for today and keep the patient n.p.o. for tomorrow. The patient will continue on IV PPI for now. The labs show stable hemoglobin, at 9.2. Creatinine is improved from 1.7-1.4. Anemia workup shows iron deficiency anemia june 16 Patient seen examined, no acute overnight events, no bowel movements, cough and shortness of breath better was ambulating with the help of Physical therapy Her labs show drop in hb to 8.4, creat is stable at 1.4 Pt is NPO, possible EGD today. continue steroids, duonebs and abx for copd. Pertinent ROS: Denies headache, dizziness Denies chest pain, palpitations improving shortness of breath and cough. Denies abdominal pain, nausea or vomiting. - Constitutional Vitals: Vital Signs Temp Pulse Resp BP Pulse Ox 97.6 F 72 18 152/62 94 06/16/17 04:14 06/16/17 08:13 06/16/17 08:13 06/16/17 04:14 06/16/17 08:13 Period Temp Pulse Resp BP Sys/De Jesus Pulse Ox Last 24 Hr 97.6 F-99.2 F 71-96 16-24 152-166/53-62 90-97 Intake and Output 06/15/17 06/16/17 06/16/17 21:59 05:59 13:59 Intake Total 1120 / 1120 Output Total 850 / 850 500 / 500 Balance 270 / 270 -500 / -500 Weight 222 lb Intake & Output: Intake & Output 06/15/17 06/16/17 06/16/17 21:59 05:59 13:59 Intake Total 1120 / 1120 Output Total 850 / 850 500 / 500 Balance 270 / 270 -500 / -500 Weight 222 lb Intake: Oral 700 / 700 GI Tube Flush 420 / 420 Output: Urine Catheter Amount 175 / 175 500 / 500 Void Amount 675 / 675 Other: Meal Dinner Percent of Meal Consumed 100% Exam: Constitutional; Afebrile, cooperative, alert, not in distress. Eyes- No icterus, , No periorbital swelling Ears- Ext ear normal, hearing normal to conversation. Neck- Midline trachea, supple Respiratory system:air entry better today, still has rosanne wheezing, but able to speak sentences, not in respiratory distress. CVS- Rate rhythm regular, S1,S2 heard, no gallop, no rub. 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 Medical - PN: Obj Da - Labs CBC & Chem 7: 06/16/17 03:30 06/16/17 03:30 Labs: Abnormal Lab Results 06/16/17 06/16/17 06/15/17 03:30 03:30 03:31 WBC 11.1 H RBC 2.85 L Hgb 8.4 L Hct 26.3 L POC Hct RDW 15.4 H Gran % 88.9 H Lymph % (Auto) 3.4 L [place] % (Auto) Eos % (Auto) Gran # 9.9 H Lymph # (Auto) 0.4 L [place] # (Auto) Eos # (Auto) POC Chloride Chloride Carbon Dioxide 36 H POC Total CO2 POC BUN BUN 28 H Creatinine 1.4 H POC Creatinine Glucose 146 H POC Glucose POC WB Ioniz Calcium TIBC Unsat Iron Binding Transferrin % Sat Ferritin NT-Pro-B Natriuret Pep 1416.0 H Vitamin B12 06/15/17 06/15/17 06/14/17 03:31 03:31 19:25 WBC RBC 3.12 L Hgb 9.2 L Hct 28.9 L POC Hct 29.0 L RDW 15.4 H Gran % 94.5 H Lymph % (Auto) 2.9 L [place] % (Auto) 0.8 L Eos % (Auto) Gran # 8.5 H Lymph # (Auto) 0.3 L [place] # (Auto) Eos # (Auto) POC Chloride 93 L Chloride 94 L Carbon Dioxide 31 H 33 H POC Total CO2 36 H POC BUN 31 H BUN 25 H 30 H Creatinine 1.4 H 1.7 H POC Creatinine 1.7 H Glucose 258 H 147 H POC Glucose 148 H POC WB Ioniz Calcium 1.10 L TIBC 446 H Unsat Iron Binding 382 H Transferrin % Sat 14 L Ferritin 14.5 L NT-Pro-B Natriuret Pep Vitamin B12 160.7 L 06/14/17 19:25 WBC RBC 3.10 L Hgb 9.2 L Hct 28.6 L POC Hct RDW 15.2 H Gran % Lymph % (Auto) 9.7 L [place] % (Auto) Eos % (Auto) 8.5 H Gran # Lymph # (Auto) 1.0 L [place] # (Auto) 1.1 H Eos # (Auto) 0.8 H POC Chloride Chloride Carbon Dioxide POC Total CO2 POC BUN BUN Creatinine POC Creatinine Glucose POC Glucose POC WB Ioniz Calcium TIBC Unsat Iron Binding Transferrin % Sat Ferritin NT-Pro-B Natriuret Pep Vitamin B12 Meds: Medications Acetaminophen (Tylenol) 650 mg PO Q6HP PRN PRN Reason: PAIN/FEVER > 101 Albuterol/Ipratropium (Duoneb) 3 ml NEB Q4HRT [facility] Last Admin: 06/16/17 08:11 Dose: 3 ml [facility]) [facility] Last Admin: 06/16/17 09:04 Dose: 100 mg Atenolol (Tenormin) 50 mg PO DAILY [facility] Last Admin: 06/16/17 09:04 Dose: 50 mg Cyanocobalamin (Vitamin B12) 1,000 mcg IM DAILY [facility] Stop: 06/19/17 08:59 Last Admin: 06/16/17 09:04 Dose: 1,000 mcg Dextrose (Dextrose 50%) 0 ml IV UD PRN PRN Reason: Hypoglycemia Diagnostic Test (Pha) (Accu-Chek) 1 each FS Q6 [facility] Last Admin: 06/16/17 05:39 Dose: 1 each Diphenhydramine HCl (Benadryl) 25 mg PO Q4HP PRN PRN Reason: Allergy Symptoms Doxycycline Hyclate (Doxycycline Hyclate) 100 mg PO BID [facility] Last Admin: 06/16/17 09:06 Dose: 100 mg Furosemide (Lasix) 40 mg PO DAILY [facility] Last Admin: 06/16/17 09:04 Dose: 40 mg Insulin Human Lispro (Humalog) 0 unit SQ Q6 [facility] PRN Reason: Protocol Last Admin: 06/16/17 06:03 Dose: 2 unit Lactobacillus Rhamnosus (Culturelle) 1 cap PO DAILY [facility] Last Admin: 06/16/17 09:04 Dose: 1 cap Lisinopril (Zestril) 20 mg PO DAILY [facility] Last Admin: 06/16/17 09:04 Dose: 20 mg Magnesium Oxide (Magnesium Oxide) 400 mg PO DAILY [facility] Last Admin: 06/16/17 09:04 Dose: 400 mg Methylprednisolone Sodium Succinate (Solu-Medrol) 62.5 mg IV Q8 [facility] Last Admin: 06/16/17 06:02 Dose: 62.5 mg Montelukast Sodium (Singular) 10 mg PO QDAY [facility] Last Admin: 06/16/17 09:04 Dose: 10 mg Naloxone HCl (Narcan) 0.1 mg IV Q2MIN PRN PRN Reason: Opiate Reversal Ondansetron HCl (Zofran) 4 mg IV Q4HP PRN PRN Reason: Nausea And Vomiting Oxybutynin Chloride (Ditropan) 5 mg PO BID [facility] Last Admin: 06/16/17 09:04 Dose: 5 mg Oxycodone/Acetaminophen (Percocet 5-325 Mg) 1 tab PO Q4HP PRN PRN Reason: Pain Last Admin: 06/15/17 22:13 Dose: 1 tab Pantoprazole Sodium (Protonix) 40 mg IV BIDAC [facility] Last Admin: 06/16/17 09:03 Dose: 40 mg Sodium Chloride (Saline Flush) 10 ml IV Q8 [facility] Last Admin: 06/16/17 06:02 Dose: 10 ml Sucralfate (Carafate) 1 gm PO Q6 [facility] Last Admin: 06/16/17 04:17 Dose: Not Given Vitamin B Complex (Vitamin B Complex) 1 cap PO DAILY [facility] Last Admin: 06/16/17 09:04 Dose: 1 cap Medical - PN: A/P - Time Spent With Patient Total time spent is greater than 50% in coordination of care (as documented) at patient's floor/unit and/or counseling patient: - Narrative A/P Narrative: A/P Acute on Chronic Respiratory Failure Acute copd exacerbation Acute Upper GI bleed Chronic Kidney Disease h/o Atrial fibrillation h/o Congestive Heart failure Essential hypertension Diabetes mellitus Obesity Acute blood loss anemia Iron deficiency anemia Plan Continue to monitor on telemetry hb dropped 0.8gms, plan for EGD today Respiratory status is stable and improving Creatinine is stable today at 1.4 Continue IV PPI BID, patient is on pantoprazole NPO still IV steroids, IV levofloxacin, Duonebs for copd, micro-biology negative so far Resume home meds hold anticoagulation in light of Upper gi bleed pt educated regarding not to take asa/ nsaids with xareltro Anemia workup shows iron deficiency anemia DVT scd DNR code status NPO MN except meds, full liquid diet for now Medical - PN: Qual - VTE Deep Vein Thrombosis/Pulmonary Embolism Present on Admission: No
--- NOTE | 2017-06-16 14:11 | General Surgery Progress Note ---
Subjective Patient reports: feels better, flatus, no bowel movement, nausea, shortness of breath, afebrile Narrative: Note initiated : 06/16/17 at 2:10 pm Service Date, if different from initiated Date: [] Patient: Johanne Carrasco 77 y/o F admitted on 06/14/17 for shortness of breath. Chief Complaint: [Patient is stable she still has moderately severe respiratory compromise but was able to walk 100 feet earlier today. She denies abdominal pain. She has not had any more melena but her hemoglobin has dropped to 8.4 from 9.2 on yesterday. This may very well be dilutional. She denies any epigastric pain. She complains of hunger. Today is the second complete day off Xarelto so I will wait until tomorrow to do her scope in case I have to do some intervention. This was discussed with the patient and with Dr. Cat hod]. Objective Temp Pulse Resp BP Pulse Ox 98.7 F 76 20 133/72 91 06/16/17 12:00 06/16/17 12:00 06/16/17 12:00 06/16/17 12:00 06/16/17 12:00 - Additional Data Intake & Output - Last 24 hours: Intake & Output 06/14/17 06/15/17 06/16/17 06/17/17 05:59 05:59 05:59 05:59 Intake Total 543 / 543 1120 / 1120 Output Total 1950 / 1950 2550 / 2550 Balance -1407 / -1407 -1430 / -1430 Weight 222 lb 222 lb - General physical appearance well developed, well nourished, moderate distress, other (Moderate respiratory compromise but patient is lying flat. She does not have air hunger.) - Eyes PERRL, normal ocular movement - ENT normal pinna, normal nares, normal mucosa, no hearing loss, no congestion - Neck no masses, no bruits, trachea midline, no lymphadectomy, no venous distension - Respiratory other (Expiratory wheezes are improved from yesterday) - Cardiovascular Cardiovascular exam: Present: +S1, +S2. Absent: JVD - Abdomen non tender, bowel sounds (present), surgical scars (none), masses (none) - Integumentary no rash, no growths, other (scattered superficial ecchymotic lesions On extremities) - Neurologic normal coordination, normal sensation - Musculoskeletal other (Ambulates with front wheel walker and standby assistance) - Psychiatric oriented to time, oriented to person, oriented to place, speech is normal, memory intact - Labs 06/16/17 03:30 06/16/17 03:30 Diabetes panel 06/16/17 Range/Units 03:30 Sodium 141 (133-145) mmol/L Potassium 4.3 (3.3-5.1) mmol/L Chloride 96 (96-108) mmol/L Carbon Dioxide 36 H (22-30) mmol/L BUN 28 H (8-23) mg/dl Creatinine 1.4 H (0.6-1.1) mg/dl Glucose 146 H (70-105) mg/dL Calcium 9.3 (8.6-10.4) mg/dl AST 18 (0-37) U/l ALT 12 (0-40) U/l Alkaline Phosphatase 46 (39-117) U/L Total Protein 6.5 (5.9-8.4) gm/dL Albumin 4.1 (3.2-5.2) gm/dL Triglycerides 71 (<150) mg/dl Calcium panel 06/16/17 Range/Units 03:30 Calcium 9.3 (8.6-10.4) mg/dl Phosphorus 3.3 (2.7-4.5) mg/dL Albumin 4.1 (3.2-5.2) gm/dL Pituitary panel 06/16/17 Range/Units 03:30 Sodium 141 (133-145) mmol/L Potassium 4.3 (3.3-5.1) mmol/L Chloride 96 (96-108) mmol/L Carbon Dioxide 36 H (22-30) mmol/L BUN 28 H (8-23) mg/dl Creatinine 1.4 H (0.6-1.1) mg/dl Glucose 146 H (70-105) mg/dL Calcium 9.3 (8.6-10.4) mg/dl Adrenal panel 06/16/17 Range/Units 03:30 Sodium 141 (133-145) mmol/L Potassium 4.3 (3.3-5.1) mmol/L Chloride 96 (96-108) mmol/L Carbon Dioxide 36 H (22-30) mmol/L BUN 28 H (8-23) mg/dl Creatinine 1.4 H (0.6-1.1) mg/dl Glucose 146 H (70-105) mg/dL Calcium 9.3 (8.6-10.4) mg/dl Total Bilirubin < 0.2 (0.0-1.0) mg/dL AST 18 (0-37) U/l ALT 12 (0-40) U/l Alkaline Phosphatase 46 (39-117) U/L Total Protein 6.5 (5.9-8.4) gm/dL Albumin 4.1 (3.2-5.2) gm/dL Assessment and Plan (1) Acute exacerbation of chronic obstructive airways disease Status: Acute Assessment and plan: Clinically improved from yesterday Current Visit: Yes (2) GI bleed Status: Acute Assessment and plan: No clinical evidence of ongoing bleeding but hemoglobin has dropped from 9.2-8.4 We will do upper endoscopy at 07 30 tomorrow Current Visit: Yes (3) Diabetes mellitus Status: Chronic Current Visit: No (4) Hypertension associated with diabetes Status: Chronic Current Visit: No - Time Spent With Patient Total time spent is greater than 50% in coordination of care (as documented) at patient's floor/unit and/or counseling patient:
[2017-06-17] MEDS: oxyCODONE/APAP 5/325MG TABLET PO PRN (00:02)
[2017-06-17] MEDS: INSULIN LISPRO 1 UNIT/0.01 ML UNIT SQ SCH ×4 (00:05→17:05)
[2017-06-17] MEDS: SUCRALFATE 1 GM/10 ML ORAL.SUSP PO SCH ×4 (00:05→17:14)
[2017-06-17] MEDS: IPRATROPIUM/ALBUTEROL 3 ML AMPUL.NEB NEB SCH ×6 (03:26→22:57)
[2017-06-17] MEDS: methylPREDNISolone SOD SUCC 125 MG/2 ML VIAL IV SCH ×3 (06:04→22:50)
[2017-06-17 06:20] LABS: Basophils # (Auto) 0 K/mcL (0.0-0.3); Basophils % (Auto) 0 % (0.0-2.0); Eosinophils # (Auto) 0.2 K/mcL (0.0-0.7); Eosinophils % (Auto) 2.4 % (0.0-7.0); Granulocytes % (Auto) 90.5 % (38.0-78.0); Lymphocytes # (Auto) 0.3 K/mcL (1.5-4.8); Mean Cell Volume 92.9 fL (80.0-100.0); Mean Corpuscular HGB Conc 31.1 g/dL (31.0-36.0); Mean Corpuscular Hemoglobin 28.9 pg (26.0-34.0); Monocytes # (Auto) 0.4 K/mcL (0.1-0.9); Monocytes % (Auto) 4.1 % (1.0-12.0); Platelet Count 295 K/mcL (140-440); RBC 2.84 M/mcL (4.00-5.20); Red Cell Distribution Width 15.4 % (11.5-14.5)
[2017-06-17 06:46] LABS: ALT/SGPT 15 U/l (0-40); Albumin/Globulin Ratio 1.8 (1.0-2.3); Alkaline Phosphatase 40 U/L (39-117); Bilirubin,Direct < 0.2 mg/dL (0.0-0.3); Blood Urea Nitrogen 44 mg/dl (8-23); Gamma Glutamyl Transpeptidase 10 U/L (5-36); Uric Acid 9.2 mg/dL (2.5-8.0)
[2017-06-17] MEDS ORDERED: 0.9 % SODIUM CHLORIDE 1,000 ML IV SCH ×2 (07:15→08:17)
[2017-06-17] MEDS ORDERED: ONDANSETRON 4 MG/2 ML VIAL IV PRN ×3 (07:18→08:17)
[2017-06-17] MEDS ORDERED: IPRATROPIUM/ALBUTEROL 3 ML AMPUL.NEB NEB PRN ×2 (07:18→08:17)
[2017-06-17] MEDS ORDERED: LACTATED RINGERS 250 ML IV PRN ×2 (07:18→08:17)
[2017-06-17] MEDS ORDERED: 0.9 % SODIUM CHLORIDE 250 ML IV SCH ×3 (07:30→09:00)
[2017-06-17] MEDS ORDERED: MIDAZOLAM 2 MG/2 ML VIAL IV ONE (07:30)
[2017-06-17] MEDS ORDERED: LACTATED RINGERS 1,000 ML IV SCH ×2 (07:30→08:17)
[2017-06-17] MEDS ORDERED: PROPOFOL 200 MG/20 ML VIAL IV ONE (07:30)
[2017-06-17] MEDS ORDERED: fentaNYL 100 MCG/2 ML VIAL IV ONE (07:30)
--- NOTE | 2017-06-17 07:57 | Brief Operative Note ---
Date of procedure: 06/17/17 Pre-op diagnosis: UPPER G I BLEED Post-op diagnosis: other (ACUTE GASTRO DUODENITIS WITHOUT BLEEDING;ESOPHAGEAL VARICES) Procedure: EGD WITH BIOPSIES Grafts/Implants: No Anesthesia: other (GENERAL) Findings: GR 2-3 VARICES OF ESOPHAGUS MODERATE ACUTE INFLAMMATION OF ANTRUM AND DUODENAL BULB ; NO ACTIVE BLEEDING AND NO MUCOSAL ULCERATIONS Complications: none Surgeon: Ortega Bocanegra Specimens Removed/Pathology: other (DUODENAL BIOPSIES) Condition: stable Disposition: PACU
[2017-06-17] MEDS ORDERED: DEXTROSE 50% 50 ML VIAL IV PRN (08:17)
[2017-06-17] MEDS ORDERED: ACETAMINOPHEN 325 MG TABLET PO PRN (08:17)
[2017-06-17] MEDS ORDERED: diphenhydrAMINE 25 MG CAPSULE PO PRN (08:17)
[2017-06-17] MEDS ORDERED: NALOXONE HCL 0.4 MG/ML VIAL IV PRN (08:17)
[2017-06-17] MEDS ORDERED: oxyCODONE/APAP 5/325MG TABLET PO PRN (08:17)
[2017-06-17] MEDS: MAGNESIUM OXIDE 400 MG TABLET PO SCH (10:15)
[2017-06-17] MEDS: VITAMIN B COMPLEX 1 CAPSULE PO SCH (10:15)
[2017-06-17] MEDS: MONTELUKAST 10 MG TABLET PO SCH (10:15)
[2017-06-17] MEDS: LISINOPRIL 20 MG TABLET PO SCH (10:15)
[2017-06-17] MEDS: ATENOLOL 50 MG TABLET PO SCH (10:15)
[2017-06-17] MEDS: LACTOBACILLUS 1 CAPSULE PO SCH (10:15)
[2017-06-17] MEDS: DOXYCYCLINE HYCLATE 100 MG TABLET.ORL PO SCH ×2 (10:15→21:58)
[2017-06-17] MEDS: cefTRIAXone 1 GM VIAL IV SCH (10:16)
[2017-06-17] MEDS: CYANOCOBALAMIN 1,000 MCG/ML VIAL IM SCH (10:16)
[2017-06-17] MEDS: OXYBUTYNIN CHLORIDE 5 MG TABLET PO SCH ×2 (10:16→21:58)
[2017-06-17] MEDS: FUROSEMIDE 40 MG TABLET PO SCH (10:16)
--- NOTE | 2017-06-17 11:06 | Ultrasound Report ---
CLINICAL INFORMATION: History of cirrhosis TECHNIQUE: Grayscale and color flow Doppler spectral imaging COMPARISON: Previous CT scan dated 09/30/2013 FINDINGS: Previous cholecystectomy. Common bile duct measures 7 mm. No intrahepatic bile duct dilatation. Appearance is unchanged. Liver is heterogeneous. No solid or cystic mass. No focal abnormality. Normal hepatopedal portal venous flow. There is a right adrenal mass. This measures 3.3 x 3.0 x 3.5 cm. This appears unchanged since 09/30/2013. This is considered benign. Proximal pancreatic duct measures 4 mm. This is unchanged and is 2014. No detectable pancreatic head mass IMPRESSION: 1. Previous cholecystectomy. Prominent common bile duct is unchanged. No intrahepatic bile duct dilatation 2. Heterogeneous liver parenchyma. No focal mass 3. Stable right adrenal mass 4. Pancreatic duct measures 4 mm. This is stable since 2013 Interpreted and Authenticated by: Corey Raygoza 06/17/17
[2017-06-17] MEDS: AMIODARONE HCL 200 MG TABLET PO SCH (15:05)
[2017-06-17] MEDS: PANTOPRAZOLE 40 MG VIAL IV SCH ×2 (15:05→17:04)
[2017-06-17] MEDS: 0.9 % SODIUM CHLORIDE 10 ML SYRINGE IV SCH ×3 (15:07→22:50)
[2017-06-17] MEDS ORDERED: FUROSEMIDE 40 MG/4 ML VIAL IV ONE (15:09)
--- NOTE | 2017-06-17 15:50 | Internal Med Progress Note ---
Medical - PN: Subj Patient information: Note initiated : 06/17/17 at 3:48 pm Service Date, if different from initiated Date: [] Patient: Johanne Carrasco a 77 y/o F admitted on 06/14/17 for shortness of breath. Chief Complaint: [] Interval history: Ms. Carrasco is a 77 year old Female with h/o asthma and COPD on 3 L home oxygen presents to the emergency room today because of shortness of breath that has been going on for the last 4 days The patient notes that the last 4 days she has been having cough and shortness of breath, cough is associated with yellowish greenish sputum, no blood in the sputum. Shortness of breath is associated with wheezing cough which has been progressively getting worse over the last 4 days. The patient therefore presented to the hospital for further evaluation. She admits to fatigue and weakness, denies any acute fever. Denies any sick contacts. Admits to decreased effort tolerance. The patient also notes that for the last 5-6 days she has been noticing that she has black colored stools. She denies any abdominal pain no nausea no vomiting no bright red blood in the stools. She notes that she had injured her shoulder a couple of months ago the left shoulder and has been taking aspirin 325 3 pills with Excedrin multiple times a day. She notes that that helps with the pain. She is aware that she should not be taking aspirin with the blood thinners but still chose to take this. The patient denies any new headaches no changes in vision difficulty in swallowing or changes in hearing, the patient has shortness of breath and cough no chest pain no abdominal pain no nausea no vomiting, admits to melena no bright red blood stools no hematuria. The patient denies any new joint swelling or new skin rashes but admits to easy bruising. She has wheezing going on. In the emergency room the patient was noted to be hypoxic eating 4 L to keep her oxygen saturation more than 90%. Her vital signs otherwise were stable. Her hemoglobin was 9.2 hematocrit 28. BUN was 30 creatinine is 1.7, she had bilateral wheeze on examination. 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 However the ER physician spoke with a general surgeon who has agreed to perform an EGD scope tomorrow June 15 She is seen and examined, no acute overnight events, patient feels somewhat better than yesterday but not a significant change. She still has cough and shortness of breath. Her hemoglobin is stable. Vital signs remained stable. Her exam revealed significant bilateral expiratory wheezes and poor air entry. I would advise to postpone the EGD scope into tomorrow to see if the patient can be a bit more stable to undergo the procedure as the patient is hemodynamically stable at this point in time, we will start the patient on liquid diet for today and keep the patient n.p.o. for tomorrow. The patient will continue on IV PPI for now. The labs show stable hemoglobin, at 9.2. Creatinine is improved from 1.7-1.4. Anemia workup shows iron deficiency anemia june 16 Patient seen examined, no acute overnight events, no bowel movements, cough and shortness of breath better was ambulating with the help of Physical therapy Her labs show drop in hb to 8.4, creat is stable at 1.4 Pt is NPO, possible EGD today. continue steroids, duonebs and abx for copd. june 17 In and examined, no acute overnight events, the patient's breathing is still not at baseline but patient reports slow improvement. The patient's oxygen needs have improved and she is back to 3 L which is her home dose. The hemoglobin is stable overnight. Patient had a EGD scope done today which revealed R 2-3 VARICES OF ESOPHAGUS MODERATE ACUTE INFLAMMATION OF ANTRUM AND DUODENAL BULB ; NO ACTIVE BLEEDING AND NO MUCOSAL ULCERATIONS The patient is on PPI, Carafate added. Biopsies taken by Dr. Bocanegra. 2 units of blood transfusion ordered by Dr. Bocanegra Patient had a liver ultrasound done to evaluate for cirrhosis, there is noted that the patient had heterogeneous liver normal flow of blood. Pertinent ROS: Denies headache, dizziness Denies chest pain, palpitations Improving cough and shortness of breath Denies abdominal pain, nausea or vomiting. - Constitutional Vitals: Vital Signs Temp Pulse Resp BP Pulse Ox 98.2 F 66 22 139/58 95 06/17/17 12:00 06/17/17 14:49 06/17/17 14:49 06/17/17 12:00 06/17/17 12:00 Period Temp Pulse Resp BP Sys/De Jesus Pulse Ox Last 24 Hr 97.6 F-98.9 F 60-72 12-24 121-149/49-73 90-97 Intake and Output 06/17/17 06/17/17 06/17/17 05:59 13:59 21:59 Intake Total 400 / 400 599 / 599 Output Total 400 / 400 Balance 0 / 0 599 / 599 Intake & Output: Intake & Output 06/17/17 06/17/17 06/17/17 05:59 13:59 21:59 Intake Total 400 / 400 599 / 599 120 / 120 Output Total 400 / 400 800 / 800 Balance 0 / 0 599 / 599 -680 / -680 Intake: IV 279 / 279 Sodium Chloride 0.9% 1,000 ml @ 279 / 279 125 mls/hr IV .Q8H [facility] Rx#: [id number] Oral 320 / 320 120 / 120 GI Tube Flush 400 / 400 Output: Urine Catheter Amount 400 / 400 800 / 800 Other: Meal Dinner Breakfast Lunch Percent of Meal Consumed 100% 100% 100% Feeding Ability Independent Exam: Constitutional; Afebrile, cooperative, alert, not in distress. Eyes- No icterus, , No periorbital swelling Ears- Ext ear normal, hearing normal to conversation. Neck- Midline trachea, supple Respiratory system: Air Entry equal on both sides, decreased air entry bilaterally, not in respiratory distress, bilateral expiratory wheezing present. Patient able to speak full sentences, no accessory muscle use CVS- Rate rhythm regular, S1,S2 heard, no gallop, no rub. 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 Medical - PN: Obj Da - Labs CBC & Chem 7: 06/17/17 04:08 06/17/17 04:08 Labs: Abnormal Lab Results 06/17/17 06/17/17 06/16/17 04:08 04:08 03:30 WBC RBC 2.84 L Hgb 8.2 L Hct 26.4 L POC Hct RDW 15.4 H Gran % 90.5 H Lymph % (Auto) 3.0 L Ashley % (Auto) Eos % (Auto) Gran # 9.1 H Lymph # (Auto) 0.3 L Ashley # (Auto) Eos # (Auto) POC Chloride Chloride 94 L Carbon Dioxide 36 H 36 H POC Total CO2 POC BUN BUN 44 H 28 H Creatinine 1.7 H 1.4 H POC Creatinine Glucose 142 H 146 H POC Glucose Uric Acid 9.2 H POC WB Ioniz Calcium Phosphorus 4.6 H TIBC Unsat Iron Binding Transferrin % Sat Ferritin NT-Pro-B Natriuret Pep Vitamin B12 06/16/17 06/15/17 06/15/17 03:30 03:31 03:31 WBC 11.1 H RBC 2.85 L Hgb 8.4 L Hct 26.3 L POC Hct RDW 15.4 H Gran % 88.9 H Lymph % (Auto) 3.4 L Ashley % (Auto) Eos % (Auto) Gran # 9.9 H Lymph # (Auto) 0.4 L Ashley # (Auto) Eos # (Auto) POC Chloride Chloride Carbon Dioxide 31 H POC Total CO2 POC BUN BUN 25 H Creatinine 1.4 H POC Creatinine Glucose 258 H POC Glucose Uric Acid POC WB Ioniz Calcium Phosphorus TIBC 446 H Unsat Iron Binding 382 H Transferrin % Sat 14 L Ferritin 14.5 L NT-Pro-B Natriuret Pep 1416.0 H Vitamin B12 160.7 L 06/15/17 06/14/17 06/14/17 03:31 19:25 19:25 WBC RBC 3.12 L 3.10 L Hgb 9.2 L 9.2 L Hct 28.9 L 28.6 L POC Hct 29.0 L RDW 15.4 H 15.2 H Gran % 94.5 H Lymph % (Auto) 2.9 L 9.7 L Ashley % (Auto) 0.8 L Eos % (Auto) 8.5 H Gran # 8.5 H Lymph # (Auto) 0.3 L 1.0 L Ashley # (Auto) 1.1 H Eos # (Auto) 0.8 H POC Chloride 93 L Chloride 94 L Carbon Dioxide 33 H POC Total CO2 36 H POC BUN 31 H BUN 30 H Creatinine 1.7 H POC Creatinine 1.7 H Glucose 147 H POC Glucose 148 H Uric Acid POC WB Ioniz Calcium 1.10 L Phosphorus TIBC Unsat Iron Binding Transferrin % Sat Ferritin NT-Pro-B Natriuret Pep Vitamin B12 Meds: Medications Acetaminophen (Tylenol) 650 mg PO Q6HP PRN PRN Reason: PAIN/FEVER > 101 Albuterol/Ipratropium (Duoneb) 3 ml NEB Q4HRT [facility] Last Admin: 06/17/17 14:47 Dose: 3 ml Amiodarone HCl (Cordarone) 100 mg PO QAC [facility] Atenolol (Tenormin) 50 mg PO DAILY [facility] Last Admin: 06/17/17 10:15 Dose: 50 mg Ceftriaxone Sodium (Rocephin) 1 gm IV Q24H [facility] Last Admin: 06/17/17 10:16 Dose: 1 gm Cyanocobalamin (Vitamin B12) 1,000 mcg IM DAILY [facility] Stop: 06/19/17 08:59 Last Admin: 06/17/17 10:16 Dose: 1,000 mcg Dextrose (Dextrose 50%) 0 ml IV UD PRN PRN Reason: Hypoglycemia Diagnostic Test (Pha) (Accu-Chek) 1 each FS Q6 [facility] Last Admin: 06/17/17 12:58 Dose: 1 each Diphenhydramine HCl (Benadryl) 25 mg PO Q4HP PRN PRN Reason: Allergy Symptoms Doxycycline Hyclate (Doxycycline Hyclate) 100 mg PO BID [facility] Last Admin: 06/17/17 10:15 Dose: 100 mg Furosemide (Lasix) 40 mg PO DAILY [facility] Last Admin: 06/17/17 10:16 Dose: 40 mg Sodium Chloride (Sodium Chloride 0.9%) 250 mls @ 20 mls/hr IV .[id number] [facility] Stop: 06/17/17 19:59 Last Admin: 06/17/17 13:04 Dose: Not Given Sodium Chloride (Sodium Chloride 0.9%) 250 mls @ 20 mls/hr IV .[id number] [facility] Stop: 06/17/17 21:29 Insulin Human Lispro (Humalog) 0 unit SQ Q6 SUN PRN Reason: Protocol Last Admin: 06/17/17 12:59 Dose: 4 unit Lactobacillus Rhamnosus (Culturelle) 1 cap PO DAILY [facility] Last Admin: 06/17/17 10:15 Dose: 1 cap Lisinopril (Zestril) 20 mg PO DAILY [facility] Last Admin: 06/17/17 10:15 Dose: 20 mg Magnesium Oxide (Magnesium Oxide) 400 mg PO DAILY [facility] Last Admin: 06/17/17 10:15 Dose: 400 mg Methylprednisolone Sodium Succinate (Solu-Medrol) 62.5 mg IV Q8 [facility] Montelukast Sodium (Singular) 10 mg PO QDAY [facility] Last Admin: 06/17/17 10:15 Dose: 10 mg Naloxone HCl (Narcan) 0.1 mg IV Q2MIN PRN PRN Reason: Opiate Reversal Ondansetron HCl (Zofran) 4 mg IV Q4HP PRN PRN Reason: Nausea And Vomiting Oxybutynin Chloride (Ditropan) 5 mg PO BID [facility] Last Admin: 06/17/17 10:16 Dose: 5 mg Oxycodone/Acetaminophen (Percocet 5-325 Mg) 1 tab PO Q4HP PRN PRN Reason: Pain Pantoprazole Sodium (Protonix) 40 mg IV BIDAC [facility] Sodium Chloride (Saline Flush) 10 ml IV Q8 [facility] Sucralfate (Carafate) 1 gm PO Q6 [facility] Last Admin: 06/17/17 12:58 Dose: 1 gm Vitamin B Complex (Vitamin B Complex) 1 cap PO DAILY [facility] Last Admin: 06/17/17 10:15 Dose: 1 cap Medical - PN: A/P - Time Spent With Patient Total time spent is greater than 50% in coordination of care (as documented) at patient's floor/unit and/or counseling patient: - Narrative A/P Narrative: A/P Acute on Chronic Respiratory Failure Acute copd exacerbation Acute Upper GI bleed Chronic Kidney Disease h/o Atrial fibrillation h/o Congestive Heart failure Essential hypertension Diabetes mellitus Obesity Acute blood loss anemia Iron deficiency anemia E. coli urinary tract infection Esophageal varices Gastritis and duodenitis Plan Continue to monitor on telemetry hb stable overnight 2 units of blood to be transfused Respiratory status is stable and improving vision is back on baseline oxygen needs Creatinine is slightly worse today at 1.7 Continue IV PPI BID, patient is on pantoprazole, Carafate added by surgery IV steroids, duo nebs. Patient levofloxacin switched to Rocephin because of urinary tract infection in which E. coli is resistant to levofloxacin Resume home meds hold anticoagulation in light of Upper gi bleed, will discuss with surgery before initiating them pt educated regarding not to take asa/ nsaids with xareltro DVT scd DNR code status NPO MN except meds, full liquid diet for now Medical - PN: Qual - VTE Deep Vein Thrombosis/Pulmonary Embolism Present on Admission: No
[2017-06-18] MEDS: INSULIN LISPRO 1 UNIT/0.01 ML UNIT SQ SCH ×4 (00:16→12:00)
[2017-06-18] MEDS: SUCRALFATE 1 GM/10 ML ORAL.SUSP PO SCH ×3 (00:17→12:01)
[2017-06-18] MEDS: IPRATROPIUM/ALBUTEROL 3 ML AMPUL.NEB NEB SCH ×3 (03:23→11:07)
[2017-06-18 05:06] LABS: Basophils # (Auto) 0 K/mcL (0.0-0.3); Basophils % (Auto) 0.1 % (0.0-2.0); Eosinophils # (Auto) 0.3 K/mcL (0.0-0.7); Eosinophils % (Auto) 3.5 % (0.0-7.0); Lymphocytes # (Auto) 0.3 K/mcL (1.5-4.8); Lymphocytes % (Auto) 2.8 % (15.5-49.0); Mean Cell Volume 91.7 fL (80.0-100.0); Mean Corpuscular HGB Conc 32.5 g/dL (31.0-36.0); Mean Corpuscular Hemoglobin 29.8 pg (26.0-34.0); Monocytes # (Auto) 0.5 K/mcL (0.1-0.9); Monocytes % (Auto) 5.6 % (1.0-12.0); Platelet Count 316 K/mcL (140-440); Red Cell Distribution Width 16.4 % (11.5-14.5)
[2017-06-18 05:44] LABS: ALT/SGPT 21 U/l (0-40); Albumin 4.2 gm/dL (3.2-5.2); Albumin/Globulin Ratio 1.8 (1.0-2.3); Alkaline Phosphatase 43 U/L (39-117); Bilirubin,Direct < 0.2 mg/dL (0.0-0.3); Blood Urea Nitrogen 53 mg/dl (8-23); Gamma Glutamyl Transpeptidase 14 U/L (5-36); Uric Acid 9.7 mg/dL (2.5-8.0)
[2017-06-18] MEDS: 0.9 % SODIUM CHLORIDE 10 ML SYRINGE IV SCH (06:15)
[2017-06-18] MEDS: methylPREDNISolone SOD SUCC 125 MG/2 ML VIAL IV SCH (06:23)
[2017-06-18] MEDS: PANTOPRAZOLE 40 MG VIAL IV SCH (07:47)
[2017-06-18] MEDS ORDERED: AMIODARONE HCL 200 MG TABLET PO SCH (08:00)
[2017-06-18] MEDS: MAGNESIUM OXIDE 400 MG TABLET PO SCH (09:02)
[2017-06-18] MEDS: FUROSEMIDE 40 MG TABLET PO SCH (09:02)
[2017-06-18] MEDS: DOXYCYCLINE HYCLATE 100 MG TABLET.ORL PO SCH (09:02)
[2017-06-18] MEDS: ATENOLOL 50 MG TABLET PO SCH (09:02)
[2017-06-18] MEDS: VITAMIN B COMPLEX 1 CAPSULE PO SCH (09:02)
[2017-06-18] MEDS: MONTELUKAST 10 MG TABLET PO SCH (09:03)
[2017-06-18] MEDS: LISINOPRIL 20 MG TABLET PO SCH (09:03)
[2017-06-18] MEDS: cefTRIAXone 1 GM VIAL IV SCH (09:03)
[2017-06-18] MEDS: OXYBUTYNIN CHLORIDE 5 MG TABLET PO SCH (09:03)
[2017-06-18] MEDS: CYANOCOBALAMIN 1,000 MCG/ML VIAL IM SCH (09:03)
[2017-06-18] MEDS: LACTOBACILLUS 1 CAPSULE PO SCH (09:12)
--- NOTE | 2017-06-18 11:12 | Discharge Summary ---
Medical - DS: Prov Patient information: Note initiated : 06/18/17 at 11:09 am Service Date, if different from initiated Date: [] Patient: Johanne Carrasco 77 y/o F admitted on 06/14/17 for shortness of breath. Chief Complaint: [] Date of admission: 06/14/17 22:40 Discharge date: 06/18/17 Primary care physician: Mirza Sen Consults: 06/14/17 20:49 Consult to Physician [CONS] Stat Comment: Consulting Provider: Camille Salas Reason For Exam: Physician to Consult Consult to Physician [CONS] Stat Comment: Consulting Provider: Ortega Bocanegra Reason For Exam: Physician to Consult Medical - DS: Meds - Discharge Medications Prescriptions: Cefdinir 300 mg PO BID #10 cap predniSONE [Deltasone] 40 mg PO DAILY #10 tab Active and Home Medications: Home Medications Montelukast Sodium [Singulair] 10 mg PO QDAY 12/23/14 [History Confirmed Last Taken 10/12/15] glipiZIDE [Glucotrol] 5 mg PO BIDAC 12/23/14 [History Confirmed 06/14/17 Last Taken 10/12/15] metFORMIN HCL [Glucophage] 1,000 mg PO BID 12/23/14 [History Confirmed 06/14/17 Last Taken 10/12/15] Magnesium Oxide [Magox 400] 400 mg PO DAILY #14 tablet 08/09/15 [Rx Confirmed Last Taken 10/12/15] Saccharomyces Boulardii [Florastor] 250 mg PO DAILY 10/12/15 [History Confirmed 06/14/17 Last Taken Unknown] Amiodarone HCl [Pacerone] 100 mg PO ONCE 06/14/17 [History Confirmed 06/14/17 Last Taken Unknown] Furosemide [Lasix] 40 mg PO DAILY 06/14/17 [History Confirmed 06/14/17 Last Taken Unknown] Ipratropium/Albuterol [Duoneb] 3 ml NEB Q4HP PRN 06/14/17 [History Confirmed Last Taken Unknown] Lisinopril [Zestril] 20 mg PO ONCE 06/14/17 [History Confirmed 06/14/17 Last Taken Unknown] Loratadine [Loradamed] 10 mg PO ONCE 06/14/17 [History Confirmed 06/14/17 Last Taken Unknown] Oxybutynin Chloride [Ditropan] 5 mg PO BID 06/14/17 [History Confirmed 06/14/17 Last Taken Unknown] diphenhydrAMINE [Benadryl] 25 mg PO Q4HP PRN 06/14/17 [History Confirmed Last Taken Unknown] Cefdinir 300 mg PO BID #10 cap 06/18/17 [Rx Last Taken Unknown] predniSONE [Deltasone] 40 mg PO DAILY #10 tab 06/18/17 [Rx Last Taken Unknown] Medical - DS: Hosp Hospital course: DISCHARGE DIAGNOSIS * Gastritis and duodenitis- status post EGD. Surgery recommendations Carafate/ PPI. Hold rivaroxaban for 5 days * E. coli urinary tract infection- continue antibiotics for additional 3 days. * Acute on Chronic Respiratory Failure * Acute copd exacerbation-continue prednisone for additional 4 days * Acute Upper GI bleed- status post EGD/2 units blood transfusion * Chronic Kidney Disease- creatinine baseline. Follow-up with nephrology in 2 weeks * h/o Atrial fibrillation- rate controlled. on amiodarone * h/o Congestive Heart failure * Essential hypertension-stable on lisinopril * Diabetes mellitus * Obesity * Acute blood loss anemia- status post 2 units blood transfusion * Iron deficiency anemia * Esophageal varices BRIEF HOSPITAL COURSE Ms. Carrasco is a 77 year old Female with h/o asthma and COPD on 3 L home oxygen presents to the emergency room today because of shortness of breath that has been going on for the last 4 days The patient notes that the last 4 days she has been having cough and shortness of breath, cough is associated with yellowish greenish sputum, no blood in the sputum. Shortness of breath is associated with wheezing cough which has been progressively getting worse over the last 4 days. The patient therefore presented to the hospital for further evaluation. She admits to fatigue and weakness, denies any acute fever. Denies any sick contacts. Admits to decreased effort tolerance. The patient also notes that for the last 5-6 days she has been noticing that she has black colored stools. She denies any abdominal pain no nausea no vomiting no bright red blood in the stools. She notes that she had injured her shoulder a couple of months ago the left shoulder and has been taking aspirin 325 3 pills with Excedrin multiple times a day. She notes that that helps with the pain. She is aware that she should not be taking aspirin with the blood thinners but still chose to take this. The patient denies any new headaches no changes in vision difficulty in swallowing or changes in hearing, the patient has shortness of breath and cough no chest pain no abdominal pain no nausea no vomiting, admits to melena no bright red blood stools no hematuria. The patient denies any new joint swelling or new skin rashes but admits to easy bruising. She has wheezing going on. In the emergency room the patient was noted to be hypoxic eating 4 L to keep her oxygen saturation more than 90%. Her vital signs otherwise were stable. Her hemoglobin was 9.2 hematocrit 28. BUN was 30 creatinine is 1.7, she had bilateral wheeze on examination. 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 However the ER physician spoke with a general surgeon who has agreed to perform an EGD scope tomorrow June 15 She is seen and examined, no acute overnight events, patient feels somewhat better than yesterday but not a significant change. She still has cough and shortness of breath. Her hemoglobin is stable. Vital signs remained stable. Her exam revealed significant bilateral expiratory wheezes and poor air entry. I would advise to postpone the EGD scope into tomorrow to see if the patient can be a bit more stable to undergo the procedure as the patient is hemodynamically stable at this point in time, we will start the patient on liquid diet for today and keep the patient n.p.o. for tomorrow. The patient will continue on IV PPI for now. The labs show stable hemoglobin, at 9.2. Creatinine is improved from 1.7-1.4. Anemia workup shows iron deficiency anemia june 16 Patient seen examined, no acute overnight events, no bowel movements, cough and shortness of breath better was ambulating with the help of Physical therapy Her labs show drop in hb to 8.4, creat is stable at 1.4 Pt is NPO, possible EGD today. continue steroids, duonebs and abx for copd. june 17 In and examined, no acute overnight events, the patient's breathing is still not at baseline but patient reports slow improvement. The patient's oxygen needs have improved and she is back to 3 L which is her home dose. The hemoglobin is stable overnight. Patient had a EGD scope done today which revealed R 2-3 VARICES OF ESOPHAGUS MODERATE ACUTE INFLAMMATION OF ANTRUM AND DUODENAL BULB ; NO ACTIVE BLEEDING AND NO MUCOSAL ULCERATIONS The patient is on PPI, Carafate added. Biopsies taken by Dr. Bocanegra. 2 units of blood transfusion ordered by Dr. Bocanegra Patient had a liver ultrasound done to evaluate for cirrhosis, there is noted that the patient had heterogeneous liver normal flow of blood. June 18- patient doing well. No overnight events. Family at bedside. Surgery advised to continue PPI twice dailyalong with Carafate. discharge instructions as below. Discharge diagnosis: . - Time Spent with Patient Total time spent providing and/or coordinating discharge services: Greater than 30 minutes Medical - DS: Exam - Constitutional Vitals: Vital Signs Temp Pulse Resp BP Pulse Ox 06/18/17 11:08 110 H 20 06/18/17 04:00 97.7 F 60 22 150/69 92 06/18/17 00:00 98.7 F 61 20 157/70 91 06/17/17 23:06 64 20 06/17/17 20:00 98.5 F 60 20 139/69 92 06/17/17 19:42 62 16 06/17/17 19:38 94 06/17/17 14:49 66 22 06/17/17 12:00 98.2 F 60 16 139/58 95 Intake and Output 06/17/17 06/18/17 06/18/17 21:59 05:59 13:59 Intake Total 360 / 360 800 / 800 Output Total 800 / 800 1700 / 1700 Balance -440 / -440 -900 / -900 Intake: Oral 360 / 360 800 / 800 Output: Urine Catheter Amount 800 / 800 1700 / 1700 Other: Meal Dinner HS snack Percent of Meal Consumed 100% 100% Feeding Ability Independent Stool Color Black Weight 223 lb Medical - DS: Data Labs on day of discharge: Labs from last 24 hours 06/18/17 06/18/17 03:28 03:28 WBC 9.5 RBC 3.80 L Hgb 11.3 L Hct 34.8 L MCV 91.7 MCH 29.8 MCHC 32.5 RDW 16.4 H Plt Count 316 MPV 9.1 Gran % 88.0 H Lymph % (Auto) 2.8 L Sweet [place] % (Auto) 5.6 Eos % (Auto) 3.5 Baso % (Auto) 0.1 Gran # 8.3 H Lymph # (Auto) 0.3 L [place] # (Auto) 0.5 Eos # (Auto) 0.3 Baso # (Auto) 0 Sodium 142 Potassium 4.0 Chloride 93 L Carbon Dioxide 36 H Anion Gap 13.0 BUN 53 H Creatinine 1.8 H GFR Calculation 26 Glucose 212 H Uric Acid 9.7 H Calcium 9.1 Phosphorus 4.4 Magnesium 2.1 Total Bilirubin 0.2 Direct Bilirubin < 0.2 GGT 14 AST 18 ALT 21 Alkaline Phosphatase 43 Lactate Dehydrogenase 224 Total Protein 6.6 Albumin 4.2 Globulin 2.4 Albumin/Globulin Ratio 1.8 Triglycerides 132 Medical - DS: A/P - Patient/Caregiver Discharge Instructions Activity: increase activity as tolerated, resume usual activities as tolerated Diet: Renal/Consistent Carbs Additional Instructions: Follow-up PCP in 5 days I recommend PCP to check CBC BMP UA as a posthospital follow-up andin 1 week. Antibiotics for For additional 5 days in light ofmultidrug-resistant Escherichia coli follow-up nephrology 1 week admitted twice daily oral PPI for 30 days followed by once daily for 90 days Continue Carafate for to 6 months Resumes rivaroxaban after 5 days. Continue aggressive bowel regimen to prevent constipation Continue fall precautions All meals on chair sitting upright at 90 degrees to prevent aspiration Return to ER if worsening fever chills shortness of breath, diarrhea, bleeding Review risk and side effect profile of medications including antibiotics. Side effect may include mild to severe reaction including rash, diarrhea, cdiff and even which can be prevented by close follow-up with PCP and monitoring for side effects Continue diet and activity as advised Discussed importance of medication adherence Please review medication list with patient prior to discharge Please schedule follow-up with PCP/Providers prior to discharge and provide printouts Portions of this chart may have been created with [employer] voice recognition software. Occasional wrong-word or ?sound-like? substitutions may have occurred due to the inherent limitations of voice recognition software. Please read the chart carefully and recognize, using context, where the substitutions have occurred. CC- PCP Prescriptions: Cefdinir 300 mg PO BID #10 cap predniSONE [Deltasone] 40 mg PO DAILY #10 tab Sucralfate [Carafate] 1 gm PO Q6 60 Days #90 oral.susp - Follow up Plan Follow up with: Mirza Sen MD [Primary Care Provider] - 06/22/17 10:30 am Disposition: Home, Self-Care Prognosis: Fair Rehab Potential: Fair I certify that the patient requires SNF services: No Overall status at discharge: patient is progressing back to baseline Medical - DS: Qual - VTE Deep Vein Thrombosis/Pulmonary Embolism Present on Admission: No
--- NOTE | 2017-06-18 13:31 | Operative Note ---
DATE OF OPERATION: 06/17/2017 PREOPERATIVE DIAGNOSIS: Upper gastrointestinal bleeding. POSTOPERATIVE DIAGNOSIS: Acute gastritis and duodenitis without bleeding, grade II esophageal varices. PROCEDURE: Esophagogastroduodenoscopy with biopsy. SURGEON: Ortega Bocanegra MD FINDINGS: 1. Grade II to III varices of the esophagus, more prominent in the upper two-thirds of the esophagus. 2. Moderate acute inflammation of the antrum and duodenal bulb with healing granulations in duodenal bulb and a cavitary lesion suggestive of old ulcer. 3. No active bleeding and no mucosal ulcerations. DESCRIPTION OF PROCEDURE: Under general anesthesia, the patient was turned to the left lateral decubitus position. A timeout procedure was carried out as per protocol. Bite block was placed. Scope was introduced through the bite block into the retropharynx and esophagus. There were three rows of varices with some bulbous dilation in the upper third of the esophagus, extending to the middle third. The distal third only showed mild early venous dilation but not as prominent as in the upper esophagus. The stomach dilated appropriately. There was inflammation of the distal body and antrum of the stomach leading to the pylorus. Pylorus opened appropriately. There was elevated healing granular tissue of the proximal portion of the bulb and immediately distal to the pylorus. There was a cavitary lesion that had this granulation looking tissue, which was friable. There was no discernable cavitary lesion; however, there was some depth to the area of the granulation tissue suggesting that a previous ulceration was in this spot. Second, third and fourth portions of the duodenum were unremarkable. The scope was pulled back and biopsies of the duodenum and the antrum were taken. Retroflexed view did not reveal any significant pathology. I did not see any gastric varices. Air was suctioned from the stomach and the scope was removed. The patient tolerated the procedure well. She was awakened and transferred to the Postanesthetic Care Unit in stable satisfactory condition. LCS:eloy Job ID: [id number] Doc ID: [id number] Ortega Bocanegra M.D.
[2017-06-19] MEDS ORDERED: methylPREDNISolone SOD SUCC 125 MG/2 ML VIAL IV SCH (09:00)
--- NOTE | 2017-06-19 10:21 | Surgical Pathology Report ---
HISTOLOGY SPECIMEN MICROSCOPIC DIAGNOSIS DUODENUM, BIOPSY: -- DUODENAL MUCOSA WITH EXTENSIVE GASTRIC METAPLASIA, MODERATE CHRONIC INFLAMMATION, MILD ACUTE INFLAMMATION AND REACTIVE EPITHELIAL TYPE CHANGES. -- GASTRIC METAPLASIA CONFIRMED ON ALCIAN BLUE/PAS STAIN (ADEQUATE TECHNICAL CONTROL). -- NO HELICOBACTER ORGANISMS IDENTIFIED ON ALCIAN YELLOW STAIN (ADEQUATE TECHNICAL CONTROL). (DMT:adj) CLINICAL HISTORY Upper gastrointestinal bleeding. PROCEDURAL IMPRESSION Grade II-III varices of esophagus, more prominent in upper two-thirds; moderate acute inflammation of the antrum and duodenal bulb with healing granulations in duodenal bulb and a cavitary lesion suggestive of old ulcer; no active bleeding or mucosal ulcerations. GROSS DESCRIPTION Received in formalin labeled duodenal biopsy, are six yellow-vasques tissue fragments less than 0.1 to 0.3 cm. Totally submitted - one cassette. (STM:djf) Electronically Signed by: Vel Mauricio M.D.
== END 2017-06-18 13:45 | disposition home or self-care (01) | DRG 190 ==
LOC: ED 19:00 → ICU 22:40 → MEDSUR 06-16 16:15 → ICU 06-16 16:16
PROVIDERS: ADMIT Internal Medicine; ATTEND Internal Medicine